=== PATIENT | female | born 1980 | race Caucasian/White ===

== ENCOUNTER 2020-12-20 07:38 | Outpatient (CLI) | payer OTHER, SELFPAY ==
--- NOTE | ~2020-12-20 | MM_ITS ---
EXAMINATION: MM screening [facility] BI w margarita HISTORY: Screening TECHNIQUE: Craniocaudal and mediolateral oblique 3-D tomosynthesis images were obtained and synthetic 2-D images were generated. CAD analysis was submitted and interpreted. COMPARISON: No prior mammogram is available for comparison at this institution. BREAST PARENCHYMAL COMPOSITION: The breasts are heterogenously dense, which may obscure small masses. FINDINGS: There are bilateral breast asymmetries with possible architectural distortion bilaterally. There are no suspicious calcifications. IMPRESSION: 1. Bilateral breast asymmetries with possible associated architectural distortion. 2. Additional mammographic views and possible breast ultrasound are recommended. BI-RADS Category 0: Incomplete: Needs additional imaging evaluation. Reviewed, dictated and finalized at location A. IMPRESSION: 1. Bilateral breast asymmetries with possible associated architectural distorti on. 2. Additional mammographic views and possible breast ultrasound are recommended . BI-RADS Category 0: Incomplete: Needs additional imaging evaluation.
== END 2020-12-20 07:39 | disposition home or self-care (01) ==
LOC: ANHIMG 07:42
PROVIDERS: PCP Internal Medicine; Visit Provider Nurse Practitioner
DX: Z12.31 Encounter for screening mammogram for malignant neoplasm of breast (principal); R92.8 Other abnormal and inconclusive findings on diagnostic imaging of breast
CPT/HCPCS: 77063; 77067

== ENCOUNTER 2021-02-07 11:54 | Outpatient (CLI) | payer OTHER, SELFPAY ==
--- NOTE | ~2021-02-07 | MMUS_ITS ---
EXAMINATION: MM diagnostic mammo BI, US breast BI complete HISTORY: Follow-up bilateral breast asymmetries. TECHNIQUE: Additional 3-D tomosynthesis images of the breasts were performed and synthetic 2-D images were generated. CAD analysis was submitted and interpreted. High resolution bilateral complete breas t ultrasound was performed. COMPARISON: Comparison to multiple prior studies sequentially, with oldest reviewed study dated 12/17. BREAST PARENCHYMAL COMPOSITION: Breast composed of scattered areas of fibroglandular density. FINDINGS: MAMMOGRAPHIC FINDINGS: There are no suspicious masses, calcifications or architectural distortion in either breast to sugges t malignancy. ULTRASOUND: Bilateral complete breast ultrasound including all 4 quadrants in the subareolar locations: In the ri ght breast at 3:00 near the nipple there is a 5 mm cyst. No suspicious solid or vascular masses are i dentified in either breast to suggest malignancy. IMPRESSION: 1. No evidence for malignancy in either breast. 2. Routine yearly screening mammogram and regular clinical breast examination are recommended. BI-RADS Category 2: Benign finding(s). Reviewed, dictated and finalized at location A. IMPRESSION: 1. No evidence for malignancy in either breast. 2. Routine yearly screening mammogram and regular clinical breast examination a re recommended. BI-RADS Category 2: Benign finding(s).
== END 2021-02-07 11:55 | disposition home or self-care (01) ==
PROVIDERS: PCP Internal Medicine; Visit Provider Obstetrics & Gynecology Gynecology
DX: N60.01 Solitary cyst of right breast (principal)
CPT/HCPCS: 76641; 77066

== ENCOUNTER → 2021-05-29 10:53 | Outpatient (CLI) | payer OTHER, SELFPAY ==
--- NOTE | ~2021-05-29 | XR_ITS ---
EXAMINATION: XR sacroiliac joints min 3V EXAM DATE: 05/29/2021 11:18 INDICATION: Sacrococcygeal disorders, not elsewhere classified. TECHNIQUE: Sacroiliac joints frontal and bilateral oblique projections. There is no prior study for comparison. FINDINGS: There is mild symmetric bilateral sacroiliac joint primary osteoarthritis without evidence of sacroiliitis. Sacrum, sacroiliac joints, sacral arcuate lines are intact. There are no bony erosio ns identified. There is IUD projecting over the central aspect of the pelvis. IMPRESSION: Mild bilateral sacroiliac osteoarthritis. Reviewed, dictated and finalized at location A.
== END ==
PROVIDERS: PCP Internal Medicine; Visit Provider Nurse Practitioner Adult Health
DX: M53.3 Sacrococcygeal disorders, not elsewhere classified (principal); M54.16 Radiculopathy, lumbar region; M47.898 Other spondylosis, sacral and sacrococcygeal region
CPT/HCPCS: 72202

== ENCOUNTER → 2021-05-31 13:35 | Outpatient (CLI) | payer OTHER, SELFPAY ==
--- NOTE | ~2021-05-31 | MR_ITS ---
EXAMINATION: MR lumbar spine wo con DATE: 05/31/2021 15:04 INDICATION: Radiculopathy, lumbar region. TECHNIQUE: Magnetic resonance imaging (MRI) of the lumbar spine was performed without intravenous con trast. Sequences included sagittal T2-weighted FSE, sagittal T2-weighted FS FSE, sagittal T1-weighted FSE, and axial T2-weighted FSE. COMPARISON: None FINDINGS: There is 10 degrees dextroscoliosis of lumbar spine. Vertebral body heights and interverteb ral disc heights are normal. The distal spinal cord signal intensity is normal. The conus medullaris is at L1. The following disc levels are specifically discussed: L1-L2: The disc does not extend beyond the endplate margin. There is no facet joint osteoarthritis. T here is no neural foraminal stenosis. There is no central canal stenosis. L2-L3: The disc does not extend beyond the endplate margin. There is mild bilateral facet joint osteo arthritis. There is no neural foraminal stenosis. There is no central canal stenosis. L3-L4: There is a right foraminal protrusion. There is mild bilateral facet joint osteoarthritis. The re is mild right neural foraminal stenosis. There is no central canal stenosis. L4-L5: The disc is bulging and has an annular fissure. There is mild bilateral facet joint osteoarthr itis. There is mild left neural foraminal stenosis. There is mild central canal stenosis. L5-S1: The disc does not extend beyond the endplate margin. There is mild right facet joint osteoarth ritis. There is no neural foraminal stenosis. There is no central canal stenosis. IMPRESSION: 1. Mild lumbar spondylosis. 2. Lumbar dextroscoliosis. Reviewed, dictated and finalized at location A.
== END ==
PROVIDERS: PCP Internal Medicine; Visit Provider Nurse Practitioner Adult Health
DX: M54.16 Radiculopathy, lumbar region (principal); M53.3 Sacrococcygeal disorders, not elsewhere classified; M47.816 Spondylosis without myelopathy or radiculopathy, lumbar region; M41.86 Other forms of scoliosis, lumbar region
CPT/HCPCS: 72148

== ENCOUNTER 2021-12-22 09:38 | Outpatient (CLI) | payer OTHER, SELFPAY ==
--- NOTE | ~2021-12-22 | MM_ITS ---
EXAMINATION: MM screening ashok BI w margarita HISTORY: Screening mammogram TECHNIQUE: Craniocaudal and mediolateral oblique 3-D tomosynthesis images were obtained and synthetic 2-D images were generated. CAD analysis was submitted and interpreted. COMPARISON: 02/07/2021, 12/20/2020, 12/17/2020 BREAST PARENCHYMAL COMPOSITION: The breasts are heterogeneously dense, which may obscure small masses . FINDINGS: There is no suspicious mass, calcification, or architectural distortion to suggest malignan cy in either breast. There has been no suspicious interval change. IMPRESSION: 1. No mammographic evidence of malignancy. 2. Recommend routine screening mammography in one year. BI-RADS Category 1: Negative Reviewed, dictated and finalized at location A.
== END 2021-12-22 09:39 | disposition home or self-care (01) ==
LOC: ANHIMG 09:40
PROVIDERS: PCP Internal Medicine; Visit Provider Nurse Practitioner
DX: Z12.31 Encounter for screening mammogram for malignant neoplasm of breast (principal)
CPT/HCPCS: 77063; 77067

== ENCOUNTER 2023-02-02 10:11 | Outpatient (CLI) | payer OTHER, SELFPAY ==
--- NOTE | ~2023-02-02 | MM_ITS ---
EXAMINATION: MM screening [facility] BI w margarita HISTORY: Screening mammogram TECHNIQUE: Craniocaudal and mediolateral oblique 3-D tomosynthesis images were obtained and synthetic 2-D images were generated. CAD analysis was submitted and interpreted. COMPARISON: 12/22/2021, 02/07/2021, 12/20/2020, 12/17/2020 BREAST PARENCHYMAL COMPOSITION: The breasts are heterogeneously dense, which may obscure small masses . FINDINGS: No suspicious mass, calcification, or architectural distortion are identified in either andrea ast to suggest malignancy. There has been no suspicious interval change. IMPRESSION: 1. No mammographic evidence of malignancy. 2. Recommend routine screening mammography in one year. BI-RADS Category 1: Negative Reviewed, dictated and finalized at location A.
== END 2023-02-02 10:12 | disposition home or self-care (01) ==
LOC: ANHIMG 10:16
PROVIDERS: PCP Internal Medicine; Visit Provider Obstetrics & Gynecology Gynecology
DX: Z12.31 Encounter for screening mammogram for malignant neoplasm of breast (principal)
CPT/HCPCS: 77063; 77067

== ENCOUNTER 2023-12-23 14:18 | Emergency (ER) | payer OTHER, SELFPAY ==
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
[2023-12-23 14:42] VITALS: BP 124/69; PULSE 81; RESP 18; TEMP 36.2; O2SAT 100
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
[2023-12-23] MEDS: HYDROcodone/acetaminophen (*CRX) 5-325 MG TABLET 1 TAB PO (15:52)
[2023-12-23 16:08] LABS: Basophils Percent Auto 0.4 % (0.2-1.2); Eosinophils Absolute Auto 0.1 K/mm3 (0-0.3); Hematocrit 42.9 % (37.0-47.0); Hemoglobin 14.8 g/dL (12.0-15.0); Immature Granulocyte Absolute 0.02 K/mm3 (0.00-0.031); Immature Granulocyte Percent A 0.2 % (0-0.5); Lymphocytes Absolute Auto 2.67 K/mm3 (0.9-3.2); Lymphocytes Percent Auto 27.9 % (18.3-44.2); Mean Corpuscular HGB Conc 34.5 g/dl (32-36); Mean Corpuscular Hemoglobin 31.3 pg (26-34); Mean Corpuscular Volume 90.7 fl (80-100); Mean Platelet Volume 9.9 fl (7.4-10.4); Monocytes Absolute Auto 0.7 K/mm3 (0.1-0.6); Monocytes Percent Auto 7.4 % (2.6-8.5); Neutrophils Percent Auto 63.1 % (45.5-73.1); Platelet Count Result 287 k/mm3 (150-375); Red Blood Count 4.73 M/mm3 (4.2-5.4); Red Cell Distribution Width 11.9 % (11.5-14.5); White Blood Count 9.6 K/mm3 (4.5-10.0)
[2023-12-23 16:38] LABS: Alanine Aminotransferase 20 U/L (6-35); Albumin Level 4.4 g/dL (3.5-5.1); Alkaline Phosphatase 87 U/L (38-126); Anion Gap 4 mmol/L (8-16); Aspartate Amino Transferase 29 U/L (14-36); Bilirubin,Total 0.6 mg/dL (0.2-1.3); Blood Urea Nitrogen 9 mg/dL (7-17); Calcium 9.1 mg/dL (8.4-10.2); Carbon Dioxide 29 mmol/L (22-30); Chloride 106 mmol/L (98-107); Estimated Glomerular Filt Rate > 60; Glucose 92 mg/dL (65-110); Lipase 72 U/L (23-300); Potassium 3.7 mmol/L (3.4-5.0); Sodium 139 mmol/L (137-145)
[2023-12-23 16:39] LABS: Add Urine Microscopic? YES; Appearance Urine Cloudy (Clear); Bacteria Urine 1+ /hpf; Bilirubin Urine Negative (Negative); Blood Urine Negative (Negative); Color Urine Yellow (Yellow); Glucose Urine UA Negative (Negative); Ketones Urine Trace mg/dL (Negative); Leukocyte Esterase Ur 1+ LEU/UL (Negative); Need Manual Microscopic Reviewed; Nitrate Urine Negative (Negative); Non Pathogenic Casts 0-2; Protein Urine Trace mg/dL (Negative); Specific Grav Ur 1.024 (1.001-1.035); Squamous Epithelial Cell Urine Many /hpf (Few); pH Urine 7.5 (5.0-9.0)
[2023-12-23 17:39] VITALS: BP 120/60; PULSE 80; RESP 20; TEMP 36.7; O2SAT 98
== END 2023-12-23 18:03 | disposition home or self-care (01) ==
LOC: ANHED 17:53
PROVIDERS: Nurse Practitioner Family; Emergency Provider Physician Assistant; PCP Internal Medicine
DX: R10.30 Lower abdominal pain, unspecified (principal); M25.562 Pain in left knee; M25.561 Pain in right knee; Z79.899 Other long term (current) drug therapy; V49.40XA Driver injured in collision with unspecified motor vehicles in traffic accident, initial encounter
CPT/HCPCS: 36415; 73562; 74177; 80053; 81025; 83690; 85025; 87086; 87088; 99284; A9270; Q9967

== ENCOUNTER 2024-01-06 12:43 | Outpatient (CLI) | payer OTHER, SELFPAY ==
--- NOTE | ~2024-01-06 | MR_ITS ---
MRI of the left knee Clinical history: Pain Technique: Coronal proton density and proton density-weighted images, sagittal proton-density and T2 fat-sat images, and axial proton-density fat-saturated images were acquired. Findings: Anterior and posterior cruciate ligaments are intact. Medial collateral ligament and the la teral collateral ligament complex are intact. Popliteus tendon is intact. Medial and lateral menisci are intact, without evidence of tear. Articular cartilage is well preserved throughout the knee. Bone marrow signals are unremarkable. Extensor mechanism is intact. No significant joint effusion or Meyers's cyst. Impression: No significant abnormality identified. Reviewed, dictated and finalized at location . Impression: No significant abnormality identified.
--- NOTE | ~2024-01-06 | MR_ITS ---
MRI of the right knee Clinical history: Pain Technique: Coronal proton density and proton density-weighted images, sagittal proton-density and T2 fat-sat images, and axial proton-density fat-saturated images were acquired. Findings: Anterior and posterior cruciate ligaments are intact. Medial collateral ligament and the la teral collateral ligament complex are intact. Popliteus tendon is intact. Medial and lateral menisci are intact, without evidence of tear. There is postoperative change at the region of the medial patellar retinaculum. There is an apparent osteochondral lesion at the medial f emoral condyle, with stable appearance. Extensor mechanism is intact. No joint effusion or Meyers's cyst. Impression: Probable osteochondral lesion of the medial femoral condyle, with overall stable appearance. Correlat e with any relevant surgical history. Postoperative change in the region of the medial patellar retinaculum. No acute abnormality evident. Reviewed, dictated and finalized at [facility] [place]. Impression: Probable osteochondral lesion of the medial femoral condyle, with overall stabl e appearance. Correlate with any relevant surgical history. Postoperative change in the region of the medial patellar retinaculum. No acute abnormality evident.
== END 2024-01-06 12:44 ==
LOC: GOSHIMG 12:48
PROVIDERS: PCP Internal Medicine; Visit Provider Clinical Nurse Specialist
DX: M25.561 Pain in right knee (principal); M25.562 Pain in left knee; Z98.890 Other specified postprocedural states
CPT/HCPCS: 73721

== ENCOUNTER 2024-02-06 15:32 | Outpatient (CLI) | payer OTHER, SELFPAY ==
--- NOTE | ~2024-02-06 | MM_ITS ---
EXAMINATION: MM screening [facility] BI w margarita HISTORY: Screening mammogram TECHNIQUE: Craniocaudal and mediolateral oblique 3-D tomosynthesis images were obtained and synthetic 2-D images were generated. CAD analysis was submitted and interpreted. COMPARISON: February 02, 2023, December 22, 2021, 12/20/2020 bilateral screening mammogram examinations BREAST PARENCHYMAL COMPOSITION: There are scattered areas of fibroglandular density FINDINGS: There is no evidence of suspicious mass, calcification, or architectural distortion to sugg est malignancy in either breast. There has been no suspicious interval change. IMPRESSION: 1. No mammographic evidence of malignancy. 2. Recommend routine screening mammography in one year. BI-RADS Category 1: Negative Reviewed, dictated and finalized at location A.
== END 2024-02-06 15:33 ==
PROVIDERS: PCP Obstetrics & Gynecology Gynecology; Visit Provider Obstetrics & Gynecology Gynecology
DX: Z12.31 Encounter for screening mammogram for malignant neoplasm of breast (principal)
CPT/HCPCS: 77063; 77067

== ENCOUNTER 2025-02-08 13:06 | Outpatient (CLI) | payer OTHER, SELFPAY ==
--- NOTE | ~2025-02-08 | MM_ITS ---
EXAMINATION: MM screening [facility] BI w margarita HISTORY: Screening TECHNIQUE: Craniocaudal and mediolateral oblique 3-D tomosynthesis images were obtained and synthetic 2-D images were generated. CAD analysis was submitted and interpreted. COMPARISON: Comparison to multiple prior studies sequentially, with oldest reviewed study dated 12/17. BREAST PARENCHYMAL COMPOSITION: Not dense: There are scattered areas of fibroglandular density. FINDINGS: There are developing asymmetries primarily centered in the upper outer quadrant of the righ t breast. The left breast is stable without evidence for malignancy. IMPRESSION: 1. Developing right breast asymmetries. 2. Additional mammographic views and possible breast ultrasound are recommended. BI-RADS Category 0: Incomplete: Needs additional imaging evaluation. Reviewed, dictated and finalized at location A. IMPRESSION: 1. Developing right breast asymmetries. 2. Additional mammographic views and possible breast ultrasound are recommended . BI-RADS Category 0: Incomplete: Needs additional imaging evaluation.
== END 2025-02-08 13:07 | disposition home or self-care (01) ==
LOC: MICIMG 13:07
PROVIDERS: PCP Internal Medicine; Visit Provider Obstetrics & Gynecology Gynecology
DX: Z12.31 Encounter for screening mammogram for malignant neoplasm of breast (principal); R92.8 Other abnormal and inconclusive findings on diagnostic imaging of breast
CPT/HCPCS: 77063; 77067

== ENCOUNTER 2025-02-25 12:36 | Outpatient (CLI) | payer OTHER, SELFPAY ==
--- NOTE | ~2025-02-25 | MMUS_ITS ---
EXAMINATION: MM diagnostic ashok RT w margarita, US breast RT limited HISTORY: Right breast asymmetries TECHNIQUE: Additional 3-D tomosynthesis images of the right breast were performed and synthetic 2-D i mages were generated. CAD analysis was submitted and interpreted. High resolution Limited right breas t ultrasound was performed. COMPARISON: Comparison to multiple prior studies sequentially, with oldest reviewed study dated 12/20. BREAST PARENCHYMAL COMPOSITION: Dense: The breasts are heterogeneously dense, which may obscure small masses FINDINGS: MAMMOGRAPHIC FINDINGS: There are persistent asymmetric nodular densities in the periareolar location of the right breast and lateral in the right breast. No discrete mass identified. No suspicious calcifications. No architect in training ural distortion. ULTRASOUND: Limited right breast ultrasound: There are multiple cysts of the right breast. At 10:00, 5 cm from th e nipple there is an intramammary lymph node measuring 7 mm. There are mildly prominent ducts in the 3:00 position in the subareolar location. No suspicious sonographic abnormalities to suggest malignan cy. IMPRESSION: 1. No evidence for malignancy in the right breast. Benign findings. 2. Routine yearly screening mammogram and regular clinical breast examination are recommended. BI-RADS Category 2: Benign finding(s). Reviewed, dictated and finalized at location B. IMPRESSION: 1. No evidence for malignancy in the right breast. Benign findings. 2. Routine yearly screening mammogram and regular clinical breast examination a re recommended. BI-RADS Category 2: Benign finding(s).
--- OUTSIDE RECORDS SUMMARY | 2025-02-25 12:43 | XMS_ITS ---
Author Organization [facility] [employer] [facility] Address [address] [place] [address] [address] [facility] [address] [place] [address] Care Team Providers Care Director Outcomes Name Role Phone Morgan Ortiz DO Primary Care Provider Na Sexton [phone] REASON FOR VISIT Transfer of care Social History Sex Assigned At : Social History Observation Description Sex Assigned At Female Encounters Encounter Location Date Provider Diagnosis [facility] [address] [facility] [address] [place] [address] 01/06/2025 Na Thayer Plan Of Treatment Next Appt Details Provider Name:Na kumar, 05/13/2025 09:45:00 AM, [facility], [facility] [address], [place], [address], Progress Notes * ANUP SAMUEL LDOB: [birth year] (44 yo F)Acc No.[id number]:01/06/2025 Patient: yTler KRISHNAMURTHY ANUP Covarrubias Provider: RON RODRIGUEZ :1980 A ge:44 Y S ex:Female Date:01/06/2025 [address] [facility] Pcp:Morgan Ortiz DO Subjective: * Chief Complaints: * 1 . Transfer of care. * Medical History: Objective: * Vitals: Assessment: Plan: * Treatment: * Billing Information: * Visit Code: * Procedure Codes: * Electronic signature of RON Lane on 02/25/2025 at 12:43 PM CDT Sign off status: Pending * Provider: Dayami COFFEY PMP Date: 0 01/06/2025 Generated for Nola gardner/Jeremy/Karla on: 0 02/25/2025 12:43 PM CDT
--- OUTSIDE RECORDS SUMMARY | 2025-02-25 12:43 | XMS_ITS ---
Author Organization [facility] Address [address] [place] [address] Care Team Providers Care Documentation Liaison Name Role Phone Sobia Lawrence Primary Care Provider REASON FOR VISIT re-establish care Encounters Encounter Location Date Provider Diagnosis [facility] - Sobia Lawrence [address] [place] [address] 11/26/2024 Sobia Lawrence Plan Of Treatment No Information Progress Notes * Alyssa SAMUELDOB: 9 (44 yo F)Acc No.[id number]:11/26/2024 Progress Notes Patient: Alyssa HEMPHILL Provider: Sophie Lawrence MD :1980 A ge:44 Y S ex:Female Date:11/26/2024 [address] [facility] Subjective: * Chief Complaints: * 1 . Re-establish care. * Medical History: Objective: * Vitals: Assessment: Plan: * Treatment: * Billing Information: * Visit Code: * Procedure Codes: * Electronic signature of Uday Lawrence MD on 02/25/2025 at 12:43 PM CDT Sign off status: Pending * Provider: Sophie Lawrence MD Date: 11/26/2024 Generated for Nola gardner/Jeremy/Alejandrinaitting on: 02/25/2025 12:43 PM CDT
--- OUTSIDE RECORDS SUMMARY | 2025-02-25 12:44 | XMS_ITS | Clinical Summary ---
Author Organization [employer] - 2022 Address [address] [address] [place] [address] Phone Care Team Providers Care Management Trainee Name Role Phone Morgan Ortiz DO Primary Care Provider Social History Tobacco Use Types Packs/Day Years Used Date Smoking Tobacco: Never Assessed Comments Unknown Sex and Gender Information Value Date Recorded Sex Assigned at Not on file Legal Sex Female 10:36 AM CDT Gender Identity Not on file Sexual Orientation Not on file Plan of Treatment Health Maintenance Due Date Last Done Comments DTAP/TDAP/TD VACCINES (1 - Tdap) 1998 HEPATITIS B VACCINES (1 of 3 - 19+ 3-dose series) 1998 HPV/Cotest (21-29) 2000 CERVICAL CANCER SCREENING 2009 HPV/Cotest (30-65) 2009 PAP SMEAR 2009 BREAST CANCER SCREENING 12/17/2020 12/18/2019 INFLUENZA VACCINE (#1) 2024 COLORECTAL SCREENING 2024 Colorectal Cancer Screening 2024 FIT-DNA Q 3 years 2024 FIT/FOBT Q 1 year 2024 Flex Sig/CT Colonography Q 5 years 2024 HPV VACCINES Aged Out No longer eligi ble based on patient's age to complete this topic Procedures Procedure Name Priority Date/Time Associated Diagnosis Comments MAMMO 3D TATA SCREEN BILAT W OR WO CAD Routine 12/18/2019 9:49 AM CDT Breast cancer screening by mammogram from Last 3 Months or Most Recently Relevant to Health Maintenance Results * MAMMO SCRN BILAT 3D TATA W OR WO CAD (12/18/2019 9:49 AM CDT) Anatomical Region Laterality Modality Breast Bilateral Mammography 12/18/2019 9:49 AM CDT Impressions 12/18/2019 11:56 AM CDT IMPRESSION: No mammographic evidence of malignancy. RECOMMENDATIONS: Routine screening mammogram in one year. DICTATION LOCATION: [facility] Narrative 12/18/2019 11:56 AM CDT MAMMO SCRN BILAT 3D TATA W OR WO CAD DATE: 12/18/2019 9:49 AM HISTORY: Routine screening TECHNIQUE: Full field digital craniocaudal and mediolateral oblique projections of both breasts were obtained. Computer aided diagnosis was performed. COMPARISON: No prior study for comparison BREAST COMPOSITION: Heterogeneously dense, which limits the sensitivity of mammography. FINDINGS: No suspicious mass, suspicious microcalcifications, or architectural distortion in either breast is identified. Since the prior study, there has been no significant interval change. The computer aided diagnosis detects no significant abnormality. There appear to be a couple of small lymph nodes in the right breast. OVERALL FINAL ASSESSMENT: BI-RADS CATEGORY 1 : Negative Procedure Note Levon Quezada MD - 12/18/2019 MAMMO SCRN BILAT 3D TATA W OR WO CAD DATE: 12/18/2019 9:49 AM HISTORY: Routine screening TECHNIQUE: Full field digital craniocaudal and mediolateral oblique projections of both breasts were obtained. Computer aided diagnosis was performed. COMPARISON: No prior study for comparison BREAST COMPOSITION: Heterogeneously dense, which limits the sensitivity of mammography. FINDINGS: No suspicious mass, suspicious microcalcifications, or architectural distortion in either breast is identified. Since the prior study, there has been no significant interval change. The computer aided diagnosis detects no significant abnormality. There appear to be a couple of small lymph nodes in the right breast. OVERALL FINAL ASSESSMENT: BI-RADS CATEGORY 1 : Negative IMPRESSION: No mammographic evidence of malignancy. RECOMMENDATIONS: Routine screening mammogram in one year. DICTATION LOCATION: [facility] us Ruthie Rodriguez MD MAMMO ORDERABLES Final Re sult from Last 3 Months or Most Recently Relevant to Health Maintenance Insurance [employer] CHOICE POS II Care Teams Management Trainee Relationship Specialty Start Date End Date Morgan Ortiz DO PCP - General 09/22/15
--- OUTSIDE RECORDS SUMMARY | 2025-02-25 12:44 | XMS_ITS | Encounter Summary ---
Author Organization [facility] Address [address] [facility] [address] [place] [id number] Care Team Providers Care Lace And Textiles Restorer Name Role Phone Morgan Ortiz DO Primary Care Provider [phone] Encounter Details Date Type Department Care Team (Late st Contact Info) Description 02/13/2017 Orders Only [facility] ProviderRosa MD [address] [place] [address] Social History Tobacco Use Types Packs/Day Years Used Date Smoking Tobacco: Never Assessed Comments Unknown Sex and Gender Information Value Date Recorded Sex Assigned at Not on file 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 Historical Provider [facility] DOTTIE TALLEY Final Result documented in this encounter Visit Diagnoses Not on filedocumented in this encounter Care Teams Lace And Textiles Restorer Relationship Specialty Start Date End Date Morgan Ortiz DO PCP - General Internal Medicine 03/05/19 documented as of this encounter
--- OUTSIDE RECORDS SUMMARY | 2025-02-25 12:44 | XMS_ITS | Data Portability ---
Author [facility] Address [address] [facility] [place] [address] Care Team Providers Care Dough Mixer Operator Name Role Phone HAYLEY HERNANDEZ Scrap Wheeler SAQIB MORRIS Primary Care Provider [phone] Assessment No assessment recorded. Plan of Treatment Reminders Order Date Submit Date Provider Last Modified By Organization Details Last Modified Time Details Appointments None recorded. Lab test, urine 2018 019 [email or web address] In-Office Order, Internal Use Only DO Not Attach Compendium DO Not Attach Compendium, Do Not Delete/merge, [id number] 09:36:02 Referral None recorded. Procedures None recorded. Surgeries None recorded. Imaging None recorded. Medication Orders None recorded. Patient TargetsNo targets recorded. Patient Instructions Encounter Date Encounter Id Patient Instructions Last Modified By Organization Details Last Modified Time 10/20/2018 [id number] learning about healthy weight [email or web address] Not available 10/20/2018 09:36:02 Reason for Referral None Reported. Results Created Date Observation Date Name Description Value Unit Range Abnormal Flag Note LastModifiedBy Organization Detail LastModifiedTime 10/20/19 19 10/20/2018 pregn margret test, urine HCG negati ve Not Available In-Office Order Internal Use Only DO Not Attach Compendium DO Not Attach Compendium, Do Not Delete/merge, [id number] 10/20/2018 09:24:02 Result Notes None recorded. Problems No Known Problems Procedures Surgical History Date Name Laterality Status Provider Name and Address Organization Details Recorded Time 3 section completed [facility] 10/20/2018 08:58:16 8 hammer toe operation completed [facility] 10/20/2018 08:59:27 7 hammer toe operation completed Belén Maguire [facility] 10/20/2018 08:59:14 6 operative procedure on knee completed Bel[facility] Maguire [facility] 10/20/2018 08:58:44 Imaging Results None recorded. Procedure Notes None recorded. Medical Equipment None Reported. Allergies Allergen ID Allergen Name Allergen Category Reaction Reaction Severity Criticality Documentation Date Start Date Code Code System Note Provider Name and Address Organization Details Recorded Time 11581115 erythromy dasha medicatio n irregular heart rate Not available Not available 10/20/2018 4053 RxNorm [facility] 08:[facility]26 Medications Name Sig Start Date Stop Date Status Note LastModified by Organization Details LastModified Time Mirena 21 mcg/24 hr (up to 8 years) 52 mg intrauteri ne device Take by intrauter ine route. active inserted 10/[address] rodriguez in [facility] Not Available Not Available Not Available Vitals Date Recorded Body weight Body mass index (BMI) Body height Systolic blood pressure Diastolic blood pressure Provider Name and Address Organization Details Last Updated DateTime 10/20/2018 50524.56 g 27.9 kg/m2 172.72 cm 110 mm[Hg] 70 mm[Hg] Belén Maguire [facility] 9 08:47:30 Social History Question Answer Notes LastModified by Organizat ion Details LastModified Time Tobacco Smoking Status Never Smoker Belén sandoval [facility] 10/20/2018 08:56:52 Is Blood Transfusion Acceptable In An Emergency? Yes Information not available 10/20/2018 What Is Your Level Of Caffeine Consumption? Moderate Information not available 10/20/2018 How Much Tobacco Do You Chew? None Information not available 10/20/2018 What Type Of Diet Are You Following? REGULAR Information not available 10/20/2018 Which Illicit Or Recreational Drugs Have You Used? Denies Information not available 10/20/2018 Education 2 Year College Information not available 10/20/2018 Live Alone Or With Others? With Others Information not available 10/20/2018 What Was The Date Of Your Most Recent Tobacco Screening? 10/20/2018 Information not available 04/30/2019 How Many Children Do You Have? 3 Information not available 10/20/2018 Performs Monthly Self-breast Exam? Yes Information no t available 10/20/2018 Do You Use Protection During Sex? No Information not available 10/20/2018 What Is Your Relationship Status? Information not available 10/20/2018 Seat Belts Used Routinely Yes Information not available 10/20/2018 Are You Sexually Active? Yes Information not available 10/20/2018 General Stress Level Medium Information not available 10/20/2018 Do You Use Sunscreen Routinely? Yes Information not available 10/20/2018 Sex: Unknown Functional Status Question Answer Note LastModified by Organizat ion Details LastModified Time What is your level of alcohol consumption? Occasional Information not available 10/20/2018 Are you currently employed? Yes Information not available 10/20/2018 What is your exercise level? Occasional Information not available 10/20/2018 Mental Status None recorded. Family History Relationship Description Onset Age of this Age Resolved Age Notes LastModified by Organization Details LastModified Time Father Hypertensive disorder [place] Not available 2018 08:55:55 Mother Malignant tumor of breast 58 Pt told to say yes anthony e mom had lumps remove d that were benign but had lympho ma and then leukem ia. (Seen at [facility]) [email or web address] Not available 10/20/2018 09:38:30 Mother Leukemia [place] Not available 10/20/2018 08:56:21 Maternal Grandmother Malignant neoplasm of lung [place] Not available 2018 08:56:38 Maternal Grandmother Osteoporosis [place] Not available 10/20/2018 08:56:45 Medical History Condition Response Other N High Blood Pressure N Breast Cancer N Depression Y Blood Clots N Lung Disease N Breast Problem N Anesthesia Complications Y Headaches/Migraines N Anxiety Disorder Y Muscle, Joint, or Bone Problems N Polyps N Infertility N Acid Reflux (GERD) N Cancer N Endometriosis N High Cholesterol N Liver Disease N Thyroid Problems N Kidney or Bladder Problems N GI Problems N Acne N Eating Disorder N Anemia N Diabetes N Ovarian Cancer N Blood Transfusions N Seizures/Epilepsy N Abuse/Domestic Violence N Asthma N Hepatitis N Heart Disease N Pre-Eclampsia N Osteoporosis N Gynecological History Statement/Question Response Flow Light On BCP's at Conception? N STIs/STDs N HPV Vaccine N Duration of Flow (days) 5 Age at Menarche 11 Current Control Method IUD Age at First Child 28 Sexually Active? Y Menses Monthly Y Date of Last Pap Smear Sexual Problems? N LMP Approximate Desired Control Method IUD Obstetrics History GPAL:G 3 P 3 0 0 3 Type Value Multiple Births 0 Full Term 3 Induced 0 Spontaneous 0 Premature 0 Living 3 Ectopics 0 Total 3 Past Encounters Encounter ID Performer Location Encounter Start Date Encounter Closed Date Diagnosis/Indication Diagnosis SNOMED-CT Code Diagnosis ICD10 Code Diagnosis [id number] [facility] [address] [place] [address] 10/20/2018 08:42:17 10/22/2018 08:21:04 Gynecologic examination 98744034 Z01.411 Pap done 10/[address] Rodriguez was normal per pt. Pt unsure if HPV was tested. RUFINA obtained. [facility] management [id number] Z30.9 Pt has the Mirena IUD which expires this month. She wants another one. UPT was negative today. RTO 2 weeks for repeat UPT and Mirena IUD replacemen t. Body mass index 25-29 - overweight 701346566 Z68.27 Nutrition and exercise discussed. Health Concerns Section Related Observation LastModified by Organization Detai ls LastModified Time None Recorded Concern Status LastModified by Organization Details LastModified Time None Recorded Advance Directives Directive None Recorded Payers Encounter Date Sequence Insurance Name Policy Number Policy Purvis Covered Member ID Purvis Member ID Guarantor Name 10/20/2018 1 [employer] (POS) [id number] Giovani Acuña [id number] Antwon Acuña Notes Date Note Type Note Provider Name and Address Organization Details Recorded Time 10/20/2018 text/html Annual GYNReport ed bypatient.Menstrua l cycle:Normal menses Urinary symptoms:No hematuria; No incontinence Vulva:No genital lesion Vagina:Normal vaginal discharge Breast:No breast pain; No breast lump; No nipple discharge Current Contraception:Intr auterine device (iud) Sexual complaints:No sexual complaints; No pain during intercourse; Normal libido Menopausal Symptoms:No menopausal symptoms; Normal vaginal lubrication Psychological symptoms:No depression; No anxiety; No PMDD Preventive measures:Encourage self breast examination; Encourage regular exercise; Encourage no tobacco use; Encourage regular mammograms starting age 40 Hayley sandoval, [place] - [place] 10/20/2018 09:38:43 OBGyn Episode Ob Episode Information Episode Created Date Number of Fetuses Patient Bloodtype Patient rh Status Prepregnancy Weight lbs Domestic Partner Domestic Partner Phone Father Name Ripening Room Attendant Status 10/20/19 19 1 CLOSED Fetus Data First Name Last Name Admitted to NICU Weight (g) Sex Living Outcome Pediatric Complications Fetus ID Race Codes Race Delivery Type M Full Term [id number] Spencer Calculation Initial Spencer Date Initial Exam Date Initial Exam Provider Initial Ultrasound Date Last Menstrual Period Date Ultra Sound Weeks Gestation 0 Eighteen To Twenty Week Spencer Update Ultra Sound Date Fundal Height At Umbil Quickening Date Ultra Sound Latest Weeks Gestation Final Spencer Confirmed By Final Spencer Confirmed Date Final Spencer Date Ultra Sound Latest Days Gestation 0 0 Menstrual History Last Menstrual Date Menses Monthly On Bcp Conception Prior Menses Frequency Hcg Plus Date Menarche Onset Age Delivery Information Delivery Date Delivery Type Labor Anesthesia Weeks Gestation Incision Type Labor Labor Length Hrs Delivered By Post Complications Tubal Sterilization Discharge Date Comments 3 Discharge Information Feeding Method Contraceptive Method Maternal HG B and HCT Levels Ob Episode Information Episode Created Date Number of Fetuses Patient Bloodtype Patient rh Status Prepregnancy Weight lbs Domestic Partner Domestic Partner Phone Father Name Ripening Room Attendant Status 10/20/19 19 1 CLOSED Fetus Data First Name Last Name Admitted to NICU Weight (g) Sex Living Outcome Pediatric Complications Fetus ID Race Codes Race Delivery Type M Full Term [id number] Vaginal Spencer Calculation Initial Spencer Date Initial Exam Date Initial Exam Provider Initial Ultrasound Date Last Menstrual Period Date Ultra Sound Weeks Gestation 0 Eighteen To Twenty Week Spencer Update Ultra Sound Date Fundal Height At Umbil Quickening Date Ultra Sound Latest Weeks Gestation Final Spencer Confirmed By Final Spencer Confirmed Date Final Spencer Date Ultra Sound Latest Days Gestation 0 0 Menstrual History Last Menstrual Date Menses Monthly On Bcp Conception Prior Menses Frequency Hcg Plus Date Menarche Onset Age Delivery Information Delivery Date Delivery Type Labor Anesthesia Weeks Gestation Incision Type Labor Labor Length Hrs Delivered By Post Complications Tubal Sterilization Discharge Date Comments 9 Discharge Information Feeding Method Contraceptive Method Maternal HG B and HCT Levels Ob Episode Information Episode Created Date Number of Fetuses Patient Bloodtype Patient rh Status Prepregnancy Weight lbs Domestic Partner Domestic Partner Phone Father Name Ripening Room Attendant Status 10/20/19 19 1 CLOSED Fetus Data First Name Last Name Admitted to NICU Weight (g) Sex Living Outcome Pediatric Complications Fetus ID Race Codes Race Delivery Type F Full Term [id number] Vaginal Spencer Calculation Initial Spencer Date Initial Exam Date Initial Exam Provider Initial Ultrasound Date Last Menstrual Period Date Ultra Sound Weeks Gestation 0 Eighteen To Twenty Week Spencer Update Ultra Sound Date Fundal Height At Umbil Quickening Date Ultra Sound Latest Weeks Gestation Final Spencer Confirmed By Final Spencer Confirmed Date Final Spencer Date Ultra Sound Latest Days Gestation 0 0 Menstrual History Last Menstrual Date Menses Monthly On Bcp Conception Prior Menses Frequency Hcg Plus Date Menarche Onset Age Delivery Information Delivery Date Delivery Type Labor Anesthesia Weeks Gestation Incision Type Labor Labor Length Hrs Delivered By Post Complications Tubal Sterilization Discharge Date Comments 1 Discharge Information Feeding Method Contraceptive Method Maternal HG B and HCT Levels
--- OUTSIDE RECORDS SUMMARY | 2025-02-25 12:44 | XMS_ITS | Data Portability ---
Author Organization [facility] [employer], Main Office Address [address] [place] [address] Assessment No assessment recorded. Plan of Treatment Reminders Order Date Submit Date Provider Last Modified By Organization Details Last Modified Time Details Appointments None recorded. Lab None recorded. Referral None recorded. Procedures None recorded. Surgeries None recorded. Imaging US, thyroid 2022 023 [email or web address] Not available 11:26:46 Medication Orders cyanocobala min (vit B-12) 1,000 mcg/mL injection solution 2022 023 [facility]/Pharmacy #[id number], [address] [place], [address], 3 11:19:20 Patient TargetsNo targets recorded. Patient InstructionsNo instructions recorded. Reason for Referral None Reported. Results Created Date Observation Date Name Description Value Unit Range Abnormal Flag Note LastModifiedBy Organization Detail LastModifiedTime 07/19/2007/27/2022 T3, FREE T3, free 3.3 pg/mL 2.3-4. 2 normal Not Available [employer] [facility] [address] [place], [address], 07/27/2022 09:35:19 07/19/20 22 07/27/2022 VITAM IN B12/F OLATE , SERUM PANEL vitamin B12 316 pg/mL 200-11 00 normal Pleas e Note: Altho ugh the refer ence range for vitam in B12 is 200-1 100 pg/mL , it has been repor dottie that betwe en 5 and 10% of patie nts with value s betwe en 200 and 400 pg/mL may exper ience neuro psych iatri c and hemat ologi c abnor malit ies due to occul t B12 defic iency ; less than 1% of patie nts with value s above 400 pg/mL will have sympt oms. Not Available [email or web address] [place] [address] [place], [address], 07/27/2022 09:35:18 07/19/20 22 07/27/2022 VITAM IN B12/F OLATE , SERUM PANEL folate, serum 21.3 NG/mL normal Refer ence Range Low: <3.4 Borde rline : 3.4-5 .4 Amaris l: >5.4 Not Available [email or web address] [place] [address] [address] [place], [address], 07/27/2022 09:35:18 07/19/20 22 07/27/2022 TSH TSH 1.98 mIU/L normal Refer ence Range > or = 20 Years 0.40- 4.50 Pregn margret Range s First trime ster 0.26- 2.66 Secon d trime ster 0.55- 2.73 Third trime ster 0.43- 2.91 Not Available [email or web address] [address] [address] [place], [address], 07/27/2022 09:35:18 07/19/20 22 07/27/2022 T4, FREE T4, free 1.0 NG/dL 0.8-1. 8 normal Not Available [email or web address] [address] [address] [place], [address], 07/27/2022 09:35:17 07/19/20 22 07/27/2022 THYRO ID PEROX IDASE ANTIB ODIES thyroid peroxidase antibodies 1 IU/mL <9 normal Not Available [email or web address] [address] [address] [place], [address], 07/27/2022 09:35:17 07/19/20 22 07/27/2022 RHEUM ATOID FACTO R rheumatoid factor <14 IU/mL <14 normal Not Available [email or web address] [facility] [address] [place], [address], 07/27/2022 09:35:16 07/19/2007/27/2022 AMELIA SCREE N, IFA, W/REF L TITER AND PATTE RN AMELIA screen, ifa negati ve negati ve normal AMELIA IFA is a first line scree n for detec ting the prese nce of up to appro ximat christian 150 autoa ntibo dies in vario us autoi mmune disea ses. A negat christine AMELIA IFA resul t sugge sts an AMELIA-a ssoci ated autoi mmune disea se is not prese nt at this time, but is not defin itive . If there is high clini enoc suspi cion for Sjogr en's syndr ome, testi ng for anti- SS-A/ Ro antib danielito shoul d be consi dered . Anti- Bertha-1 antib danielito shoul d be consi dered for clini melecio suspe cted infla mmato ry myopa sabrina . AC-0: Negat christine Inter natio nal Conse nsus on AMELIA Patte rns (http s://d oi.or g/10. 1515/ [facility]- 2017- 0052) For addit ional infor jozef phillip e refer to http: //[facility] iris suarez.Que stDia gnost ics.c om/fa q/FAQ 177 (This link is being provi ded for infor mary duvall/ educa apple l purpo ses only. ) Not Available [email or web address] [address] [address], [place], [address], 07/27/2022 09:35:16 07/19/20 22 07/27/2022 COMPR EHENS CHRISTINE METAB OLIC PANEL glucose 89 mg/dL 65-139 normal Non-f astin g refer ence inter evelia Not Available [email or web address] [facility] [address] [place], [address], 07/27/2022 09:35:15 07/19/20 22 07/27/2022 COMPR EHENS CHRISTINE METAB OLIC PANEL urea nitrogen (BUN) 10 mg/dL 7-25 normal Not Available [place] [address] [address] [place], [address], 07/27/2022 09:35:15 07/19/20 22 07/27/2022 COMPR EHENS CHRISTINE METAB OLIC PANEL creatinine 1.01 mg/dL 0.50-0 .99 high Not Available [address] [address] [place], [address], 07/27/2022 09:35:15 07/19/20 22 07/27/2022 COMPR EHENS CHRISTINE METAB OLIC PANEL eGFR 71 mL/mi n/1.7 3m2 > or = 60 normal The eGFR is based on the CKD-E PI 2020 equat ion. To calcu late the new eGFR from a previ ous Creat inine or Cysta tin C resul t, go to https ://anderson rebolledo.clarke mcduffie/karen perez s/ kdoqi /gfr% 5Fcal culat or Not Available [address] [address] [place], [address], 07/27/2022 09:35:15 07/19/2007/27/2022 COMPR EHENS CHRISTINE METAB OLIC PANEL BUN/creatini ne ratio 10 (calc ) 6-22 normal Not Available [place] [address] [address] [place], [address], 07/27/2022 09:35:15 07/19/2007/27/2022 COMPR EHENS CHRISTINE METAB OLIC PANEL sodium 140 mmol/ L 135-14 6 normal Not Available [address], [address], 07/27/2022 09:35:15 07/19/20 22 07/27/2022 COMPR EHENS CHRISTINE METAB OLIC PANEL potassium 3.7 mmol/ L 3.5-5. 3 normal Not Available [email or web address] [place] [address] [place], [address], 07/27/2022 09:35:15 07/19/20 22 07/27/2022 COMPR EHENS CHRISTINE METAB OLIC PANEL chloride 104 mmol/ L 98-110 normal Not Available [address], [address], 07/27/2022 09:35:15 07/19/20 22 07/27/2022 COMPR EHENS CHRISTINE METAB OLIC PANEL carbon dioxide 29 mmol/ L 20-32 normal Not Available [address], [address], 07/27/2022 09:35:15 07/19/2007/27/2022 COMPR EHENS CHRISTINE METAB OLIC PANEL calcium 9.5 mg/dL 8.6-10 .2 normal Not Available [address], [address], 07/27/2022 09:35:15 07/19/20 22 07/27/2022 COMPR EHENS CHRISTINE METAB OLIC PANEL protein, total 7.1 g/dL 6.1-8. 1 normal Not Available [address], [address], 07/27/2022 09:35:15 07/19/20 22 07/27/2022 COMPR EHENS CHRISTINE METAB OLIC PANEL albumin 4.6 g/dL 3.6-5. 1 normal Not Available [address], [address], 07/27/2022 09:35:15 07/19/20 22 07/27/2022 COMPR EHENS CHRISTINE METAB OLIC PANEL globulin 2.5 g/dL_ (calc ) 1.9-3. 7 normal Not Available [address], [address], 07/27/2022 09:35:15 07/19/20 22 07/27/2022 COMPR EHENS CHRISTINE METAB OLIC PANEL albumin/glob ulin ratio 1.8 (calc ) 1.0-2. 5 normal Not Available [address], [address], 07/27/2022 09:35:15 07/19/20 22 07/27/2022 COMPR EHENS CHRISTINE METAB OLIC PANEL bilirubin, total 0.5 mg/dL 0.2-1. 2 normal Not Available [address], [address], 07/27/2022 09:35:15 07/19/20 22 07/27/2022 COMPR EHENS CHRISTINE METAB OLIC PANEL alkaline phosphatase 87 U/L 31-125 normal Not Available [address], [address], 07/27/2022 09:35:15 07/19/20 22 07/27/2022 COMPR EHENS CHRISTINE METAB OLIC PANEL AST 14 U/L 10-30 normal Not Available [address], [address], 07/27/2022 09:35:15 07/19/20 22 07/27/2022 COMPR EHENS CHRISTINE METAB OLIC PANEL ALT 15 U/L 6-29 normal Not Available [address], [address], 07/27/2022 09:35:15 07/20/20 22 07/26/2022 CORTI HERNÁN, A.M. cortisol, A.M. 0.8 mcg/d L low Refer ence Range 8 a.m. (7-9 a.m.) Speci men: 4.0-2 2.0 Not Available [address], [address], 07/26/2022 10:17:41 07/20/20 22 07/26/2022 DEXAM ETHAS ONE dexamethason e 248 NG/dL Refer ence Range s for Dexam ethas one: Basel ine: Less than 20 ng/dL 1 mg dexam ethas one overn ight: 180-5 50 ng/dL (8:00 -10:0 0 AM) This test was devel oped and its caleb tical perfo rmanc e maribel cteri stics have been deter mined by [facility] margot johnsonZuleika roldan . It has not been clear ed or appro charanjit by FDA. This assay has been valid ated pursu ant to the CLIA regul ation s and is used for clini enoc purpo ses. Not Available [employer] [facility] [address] [place], [address], 07/26/2022 10:17:41 08/07/20 22 08/10/2022 TESTO STERO NE, FREE (DIAL YSIS) AND TOTAL ,MS testosterone , total, MS 35 NG/dL 2-45 For addit ional infor jozef phillip refer to https ://ed ucati on.qu winterBetTech Gaming. wunderloop/f aq/FA Q165 (This link is being provi ded for infor matmarcela nal/e ducat ional purpo ses only. ) (Note ) This test was devel oped and its caleb tical perfo rmanc e maribel cteri stics have been deter mined by [employer]. It has not been clear ed or appro charanjit by the FDA. This assay has been valid ated pursu ant to the CLIA regul ation s and is used for clini enoc purpo ses. Not Available [employer] [facility] [address] [address], [place], [address], 08/10/2022 15:37:48 08/07/20 22 08/10/2022 TESTO STERO NE, FREE (DIAL YSIS) AND TOTAL ,MS testosterone , free 2.5 pg/mL 0.1-6. 4 (Note ) This test was devel oped and its caleb tical perfo rmanc e maribel cteri stics have been deter mined by [employer] leon[employer]. It has not been clear ed or appro charanjit by the FDA. This assay has been valid ated pursu ant to the CLIA regul ation s and is used for clini enoc purpo ses. JAMAL med fusio n [address] [facility] [address] [place] [address] [phone] Praful de la o MD Not Available [employer] [facility] [address] [place], [address], 08/10/2022 15:37:48 08/07/20 22 08/10/2022 FSH AND LH FSH 5.4 mIU/m L normal Refer ence Range Folli cular Phase 2.5-1 0.2 Mid-c ycle Peak 3.1-1 7.7 Lutea l Phase 1.5- 9.1 Postm enopa usal 23.0- 116.3 Not Available [email or web address] [address] [address], [place], [address], 08/10/2022 15:37:47 08/07/20 22 08/10/2022 FSH AND LH LH 8.8 mIU/m L normal Refer ence Range Folli cular Phase 1.9-1 2.5 Mid-C ycle Peak 8.7-7 6.3 Lutea l Phase 0.5-1 6.9 Postm enopa usal 10.0- 54.7 Not Available [email or web address] [address] [address], [place], [address], 08/10/2022 15:37:47 08/07/20 22 08/10/2022 ESTRA DIOL estradiol 80 pg/mL normal Refer ence Range Folli cular Phase : 19-14 4 Mid-C ycle: 64-35 7 Lutea l Phase : 56-21 4 Postm enopa usal: < or = 31 Refer ence range estab lishe d on post- puber rex patie nt popul ation . No pre-p ubert al refer ence range estab lishe d using this assay . For any patie nts for whom low Estra diol level s are antic ipate d (e.g. males , pre-p ubert al child molina and hypog onada l/pos t-men opaus al femal es), the [facility] Sushil ls Insti tute Estra diol, Ultra sensi tive, LCMSM S assay is jose guadalupe carvajal (orde r code [id number] ). Jozef castillo note: patie nts being treat ed with the drug fulve stran t (Fasl odex( R)) have demon strat ed signi fican t inter feren ce in immun oassa y metho ds for estra diol measu remen t. The cross react ivity could lead to false ly eleva dottie estra diol test resul ts leadi ng to an inapp ropri ate clini enoc asses sment of estro gen statu s. [facility] order code [id number] -Estr adiol , Ultra sensi tive LC/MS /MS demon strat es negli gible cross react ivity with fulve stran t. Not Available [employer] [address], [address], 08/10/2022 15:37:47 04/30/20 23 05/03/2023 COMPR EHENS CHRISTINE METAB OLIC PANEL glucose 96 mg/dL 65-99 normal Fasti ng refer ence inter evelia Not Available [email or web address] [address], [address], 05/03/2023 09:26:57 04/30/20 23 05/03/2023 COMPR EHENS CHRISTINE METAB OLIC PANEL urea nitrogen (BUN) 9 mg/dL 7-25 normal Not Available [employer] [address], [address], 05/03/2023 09:26:57 04/30/20 23 05/03/2023 COMPR EHENS CHRISTINE METAB OLIC PANEL creatinine 0.86 mg/dL 0.50-0 .99 normal Not Available [employer] [address], [address], 05/03/2023 09:26:57 04/30/20 23 05/03/2023 COMPR EHENS CHRISTINE METAB OLIC PANEL eGFR 86 mL/mi n/1.7 3m2 > or = 60 normal The eGFR is based on the CKD-E PI 2020 equat ion. To calcu late the new eGFR from a previ ous Creat inine or Cysta tin C resul t, go to https ://anderson rebolledo.clarke mcduffie/pr ofess ional s/ kdoqi /gfr% 5Fcal culat or Not Available [address] [address] [place], [address], 05/03/2023 09:26:57 04/30/20 23 05/03/2023 COMPR EHENS CHRISTINE METAB OLIC PANEL BUN/creatini ne ratio NOT APPLIC ABLE (calc ) 6-22 Not Available [address], [address], 05/03/2023 09:26:57 04/30/20 23 05/03/2023 COMPR EHENS CHRISTINE METAB OLIC PANEL sodium 138 mmol/ L 135-14 6 normal Not Available [address], [address], 05/03/2023 09:26:57 04/30/20 23 05/03/2023 COMPR EHENS CHRISTINE METAB OLIC PANEL potassium 3.9 mmol/ L 3.5-5. 3 normal Not Available [address], [address], 05/03/2023 09:26:57 04/30/20 23 05/03/2023 COMPR EHENS CHRISTINE METAB OLIC PANEL chloride 104 mmol/ L 98-110 normal Not Available [address], [address], 05/03/2023 09:26:57 04/30/20 23 05/03/2023 COMPR EHENS CHRISTINE METAB OLIC PANEL carbon dioxide 26 mmol/ L 20-32 normal Not Available [address] [address] [place], [address], 05/03/2023 09:26:57 04/30/20 23 05/03/2023 COMPR EHENS CHRISTINE METAB OLIC PANEL calcium 9.6 mg/dL 8.6-10 .2 normal Not Available [address], [address], 05/03/2023 09:26:57 04/30/20 23 05/03/2023 COMPR EHENS CHRISTINE METAB OLIC PANEL protein, total 7.1 g/dL 6.1-8. 1 normal Not Available [address], [address], 05/03/2023 09:26:57 04/30/2005/03/2023 COMPR EHENS CHRISTINE METAB OLIC PANEL albumin 4.5 g/dL 3.6-5. 1 normal Not Available [address], [address], 05/03/2023 09:26:57 04/30/20 23 05/03/2023 COMPR EHENS CHRISTINE METAB OLIC PANEL globulin 2.6 g/dL_ (calc ) 1.9-3. 7 normal Not Available [address], [address], 05/03/2023 09:26:57 04/30/20 23 05/03/2023 COMPR EHENS CHRISTINE METAB OLIC PANEL albumin/glob ulin ratio 1.7 (calc ) 1.0-2. 5 normal Not Available [address], [address], 05/03/2023 09:26:57 04/30/20 23 05/03/2023 COMPR EHENS CHRISTINE METAB OLIC PANEL bilirubin, total 0.7 mg/dL 0.2-1. 2 normal Not Available [address], [address], 05/03/2023 09:26:57 04/30/20 23 05/03/2023 COMPR EHENS CHRISTINE METAB OLIC PANEL alkaline phosphatase 80 U/L 31-125 normal Not Available [facility] [place] [address] [place], [address], 05/03/2023 09:26:57 04/30/20 23 05/03/2023 COMPR EHENS CHRISTINE METAB OLIC PANEL AST 13 U/L 10-30 normal Not Available [address], [address], 05/03/2023 09:26:57 04/30/20 23 05/03/2023 COMPR EHENS CHRISTINE METAB OLIC PANEL ALT 9 U/L 6-29 normal Not Available [address], [address], 05/03/2023 09:26:57 04/30/20 23 05/03/2023 THYRO ID PEROX IDASE ANTIB ODIES thyroid peroxidase antibodies 1 IU/mL <9 Not Available [address], [address], 05/03/2023 09:26:59 04/30/2005/03/2023 VITAM IN B12/F OLATE , SERUM PANEL vitamin B12 296 pg/mL 200-11 00 normal Pleas e Note: Altho ugh the refer ence range for vitam in B12 is 200-1 100 pg/mL , it has been repor dottie that betwe en 5 and 10% of patie nts with value s betwe en 200 and 400 pg/mL may exper ience neuro psych iatri c and hemat ologi c abnor malit ies due to occul t B12 defic iency ; less than 1% of patie nts with value s above 400 pg/mL will have sympt oms. Not Available [facility] [employer] [address], [address], 05/03/2023 09:26:59 04/30/20 23 05/03/2023 VITAM IN B12/F OLATE , SERUM PANEL folate, serum 10.5 NG/mL normal Refer ence Range Low: <3.4 Borde rline : 3.4-5 .4 Amaris l: >5.4 Not Available [address], [address], 05/03/2023 09:26:59 04/30/20 23 05/03/2023 T3, FREE T3, free 3.7 pg/mL 2.3-4. 2 normal Not Available [address], [address], 05/03/2023 09:27:00 04/30/20 23 05/03/2023 TSH+F REE T4 TSH 2.18 mIU/L normal Refer ence Range > or = 20 Years 0.40- 4.50 Pregn margret Range s First trime ster 0.26- 2.66 Secon d trime ster 0.55- 2.73 Third trime ster 0.43- 2.91 Not Available [address], [address], 05/03/2023 09:27:00 04/30/20 23 05/03/2023 TSH+F REE T4 T4, free 1.1 NG/dL 0.8-1. 8 normal Not Available [address], [address], 05/03/2023 09:27:00 07/31/20 22 07/23/2022 , thyro id No observ [facility]. [id number] [facility] Add On Lab Orders [address] [place], [address], 12/05/2022 20:38:53 Result Notes None recorded. 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 Not Available [facility] 3 20:38:20 Goiter 6231167 Active 2021 Not Available [facility] 3 20:38:20 Arthritis 8233101 Active 2021 Not Available [facility] 3 20:38:20 Attention deficit hyperactivity disorder 518507059 Active 2018 Not Available [facility] 3 20:38:20 Obesity 654455241 Active 2021 Not Available [facility] 3 20:38:20 Irregular periods 23800966 Active 2021 Not Available [facility] 3 20:38:20 Thyroid nodule 459572724 Active 2022 Sobia Lawrence MD [address], [address] , [employer] 3 11:14:27 Vitamin B12 deficiency (non anemic) 39768286 Active 2022 Sobia Lawrence MD [address], [address] , [employer] 3 11:18:12 Problem Notes None recorded. Procedures Surgical History None recorded. Imaging Results Imaging Date Name Status LastModified by Organiz ation Details LastModified Time 07/23/2022 US, thyroid completed [id number] 026 [facility] Add On Lab Orders [address] [place], [address], 12/05/2022 20:38:53 Procedure Notes None recorded. Medical Equipment None Reported. Allergies Allergen ID Allergen Name Allergen Category Reaction Reaction Severity Criticality Documentation Date Start Date Code Code System Note Provider Name and Address Organization Details Recorded Time 52472 erythromy dasha medicatio n Not available Not available Not available 12/05/2022 4053 RxNorm Not Available [facility] 3 20:38:51 Medications Name Sig Start Date Stop Date Status Note LastModified by Organization Details LastModified Time fluconazole 150 mg tablet TAKE 1 TABLET BY MOUTH EVERY DAY active Not Available Not Available No t Available clonazepam 0.5 mg tablet active Not Available Not Available Not Available terconazole 0.8 % vaginal cream VAGINAL INSERT 1 APPLICATO R FULL PER VAGINA AT BEDTIME FOR 3 DAYS active Not Available Not Available No t Available methylpheni date ER 54 mg tablet,exte nded release 24 hr TAKE 1 TABLET BY MOUTH EVERY DAY IN THE MORNING 08/14 completed Not Available Not Available Not Available propranolol 10 mg tablet TAKE 1 TABLET BY MOUTH THREE TIMES A DAY NEEDED FOR 30 DAYS active Not Available Not Available No t Available amoxicillin 875 mg tablet 03/20 completed Not Available Not Available Not Available dextroamphe tamine-amph etamine ER 20 mg 24hr capsule,ext end release Take 1 capsule every day by oral route. active Not Available Not Available No t Available dexamethaso ne 1 mg tablet take at 10 p.m. the night before 8 a.m. cortisol test active Not Available Not Available No t Available benzonatate 100 mg capsule TK 2 CS PO TID PRF COUGH 03/20 completed Not Available Not Available Not Available cephalexin 500 mg capsule TK 1 C PO BID 03/20 completed Not Available Not Available Not Available pantoprazol e 40 mg tablet,ping yed release TAKE 1 TABLET BY MOUTH EVERY DAY IN THE MORNING active Not Available Not Available No t Available cyanocobala min (vit B-12) 1,000 mcg/mL injection solution INJECT 1 ML EVERY WEEK BY SUBCUTANE OUS ROUTE IN THE MORNING FOR 90 DAYS. active Not Available Not Available No t Available diclofenac sodium 75 mg tablet,ping yed release TAKE 1 TABLET BY MOUTH TWICE A DAY WITH MEALS active Not Available Not Available No t Available albuterol sulfate HFA 90 mcg/actuati on aerosol inhaler TAKE 1 PUFF BY MOUTH EVERY 4 HOURS NEEDED FOR SHORTNESS OF BREATH active Not Available Not Available No t Available ondansetron 4 mg disintegrat ing tablet 03/20 completed Not Available Not Available Not Available methylpheni date ER 36 mg tablet,exte nded release 24 hr TAKE 2 TABLETS BY MOUTH EVERY MORNING active Not Available Not Available No t Available amoxicillin 875 mg-potassiu m clavulanate 125 mg tablet TK 1 T PO BID WITH THE MORNING AND FLORESITA MEAL FOR 10 DAYS 03/20 completed Not Available Not Available Not Available ciclopirox 0.77 % topical cream APPLY TOPICALLY TO THE AFFECTED AREA TWICE DAILY 08/14 completed Not Available Not Available Not Available escitalopra m 10 mg tablet TAKE 1 TABLET BY MOUTH EVERY DAY FOR 30 DAYS 08/14 completed Not Available Not Available Not Available cyclobenzap rine 5 mg tablet TAKE 1 OR 2 TABLETS BY MOUTH 3 TIMES A DAY NEEDED (7 DAYS) active Not Available Not Available No t Available bupropion HCl XL 150 mg 24 hr tablet, extended release TK 1 T PO D 03/20 completed Not Available Not Available Not Available escitalopra m 5 mg tablet TAKE 1 TABLET BY MOUTH EVERY DAY FOR 14 DAYS 08/14 completed Not Available Not Available Not Available Vyvanse 50 mg capsule TAKE 1 CAPSULE BY MOUTH EVERY DAY IN THE MORNING active Not Available Not Available No t Available Vyvanse 70 mg capsule TAKE 1 CAPSULE BY MOUTH EVERY DAY IN THE MORNING active Not Available Not Available No t Available BD Insulin Syringe Ultra-Fine 1 mL 31 gauge x 5/16 INJECT B12 SUBCUTANE OUSLY ONCE WEEKLY X 90 DAYS active Not Available Not Available No t Available Vitals Date Recorded Body mass index (BMI) Body height Oxygen saturation Oxygen saturation in Arterial blood by Pulse oximetry Heart rate Body temperature Body weight Systolic blood pressure Diastolic blood pressure Provider Name and Address Organization Details Last Updated DateTime 2 31.7 kg/m2 174.24 cm 98 % 98 % 88 /min 97.7 [degF] 34782.5 8 g 105 mm[Hg] 65 mm[Hg] Not Available [facility] 3 20:38:02 Date Recorded Body mass index (BMI) Body height Oxygen saturation Oxygen saturation in Arterial blood by Pulse oximetry Heart rate Body temperature Body weight Systolic blood pressure Diastolic blood pressure Provider Name and Address Organization Details Last Updated DateTime 2 31.6 kg/m2 174.24 cm 99 % 99 % 77 /min 97.8 [degF] 86385.1 5 g 118 mm[Hg] 78 mm[Hg] Not Available [facility] 3 20:38:02 Date Recorded Body height Body temperature Heart rate Body mass index (BMI) Body weight Systolic blood pressure Diastolic blood pressure Provider Name and Address Organization Details Last Updated DateTime 3 174.24 cm 97 [degF] 89 /min 27.5 kg/m2 20816 g 122 mm[Hg] 85 mm[Hg] Jana Samson CMA [place] [facility] [employer] [facility] 3 10:51:49 Social History Question Answer Notes LastModified by Oree Details LastModified Time Tobacco Smoking Status Never Smoker Elvia sandoval [facility] [employer] [facility] 05/30/2023 10:46:17 What Is Your Level Of Caffeine Consumption? Occasional [id number] Information not available 12/05/2022 What Type Of Diet Are You Following? REGULAR [id number] Information not available 12/05/2022 How Many Days Of Moderate To Strenuous Exercise, Like A Brisk Walk, Did You Do In The Last 7 Days? 4 Information not available 05/30/2023 What Is Your Relationship Status? [id number] Information not available 12/05/2022 Do You Have Any Dietary Restrictions? No Information not available 05/30/2023 Sex: Female Functional Status Question Answer Note LastModified by Oree Details LastModified Time Do you use any illicit or recreational drugs? No Information not available 05/30/2023 What is your level of alcohol consumption? 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 Moderate [id number] Information not available 12/05/2022 Mental Status None recorded. Family History Relationship Description Onset Age of this Age Resolved Age Notes LastModified by Organization Details LastModified Time Father No current problems or disability [id number] Not available 12/05/2022 20:38:00 Mother No current problems or disability [id number] Not available 12/05/2022 20:38:00 Medical History Condition Response HEADACHES/MIGRAINES Y EXCESSIVE PERSPIRATION Y GERD/NAUSEA Y DIZZINESS Y SKIN PROBLEMS Y AUTOIMMUNE DISEASE LUNG DISEASE/DISORDER Y DEPRESSION (INCLUDING POST ) Gynecological HistoryNo gynecological history recorded. Obstetrics History GPAL:G 0 P 0 0 0 0 Past Encounters Encounter ID Performer Location Encounter Start Date Encounter Closed Date Diagnosis/Indication Diagnosis SNOMED-CT Code Diagnosis ICD10 Code Diagnosis Note [id number] [facility] [address] [place] [address] 07/16/2022 00:00:00 07/16/2022 10:52:45 [id number] [facility] [address] [place] [address] 08/14/2022 00:00:00 08/14/2022 15:50:39 [id number] Sobia Lawrence MD [facility] [address] [place] [address] 05/30/2023 10:43:58 05/30/2023 11:26:45 Alan thyroiditis 40172363 E06.3 TSH and FT4 in ideal range- recommende d a thyroid supplement similar to actalin by Dr. Morgan Peoples that contains, iodine, magnesium, manganese, carnitine and other elements to help maintain endogenous thyroid function and help to reduce swelling to take in meantime to help reduce time frame to burn out and to help with fatigue, hair thinning etc. Thyroid nodule 986568119 E04.1 Send for repeat thyroid u/s to screen for any change or character in nodule. She had a very small / nondominan t nodule- this is for surveillan ce/monitor ing purposes. Vitamin B1 2 deficiency (non anemic) 20978390 E53.8 Trial on B12 injections 1000 mcg SQ weekly along with daily folic acid 1 mg daily. Spent up to 25 minutes preparing to see the patient (eg, review of tests), obtaining and/or reviewing separately obtained history, performing a medically appropriat e examinatio n and evaluation , counseling and educating the patient, ordering medication s, tests, along with documentin g clinical informatio n in the electronic health record, independen tly interpreti ng results and communicat ing results to the patient. Patient can be followed by PCP - she/he is aware of my resignatio n and last day of July 19. If needed his/her PCP can refer patient to another endocrinol ogist in the area. All questions /concerns answered and refills necessary at visit today. Health Concerns Section Related Observation LastModified by Organization Detai ls LastModified Time None Recorded Concern Status LastModified by Organization Details LastModified Time None Recorded Advance Directives Directive None Recorded Payers Encounter Date Sequence Insurance Name Policy Number Policy Purvis Covered Member ID Purvis Member ID Guarantor Name 05/30/2023 1 [facility] Adin Acuña [id number] Alyssa Acuña Notes Date Note Type Note Provider Name and Address Organization Details Recorded Time 05/30/2023 text/html 42 yo female comes in for followup of hashimotos thyroiditis, thyroid nodule and B12 def. last seen in Aug at that time we continued thyroid support She has a 6 mm nodule found on imaging last Aug 2022. She has continued fatigue, low energy in the afternoons. She does take multiple naps during the day. She has had sleep studies and has been on stimulants for ADHD - however there is a backorder on treatment due to overuse/underprod [place]ction [place] now. Patient otherwise does eat most home cooked meals but not stringent. labs from 04/30/23:TSH of 2.18 uIU/mlFT4 of 1.1 ng/dLFt3 of 3.7 pg/mLB12 296 pg/mLfolate 10.5 ng/mlTPO 1 IU/mlglucose 96 mg/dLCr normalLFT normal Sobia Lawrence MD [address] [facility] [address], [place], [address], [facility] [employer] 05/30/2023 13:33:57 OBGyn Episode No OBEpisode recorded.
--- OUTSIDE RECORDS SUMMARY | 2025-02-25 12:44 | XMS_ITS | Clinical Summary ---
Author Organization [facility] Address [address] [place] [address] Care Team Providers Care Rating Examiner Name Role Phone Morgan Ortiz DO Primary Care Provider [phone] Allergies Active Allergy Reactions Criticality Noted Date Comments Erythromycin Palpitations,Other (See comments) Medium 07/19/2017 Meloxicam Hives,Rash Medium 08/01/2020 Medications lisdexamfetamin e (VYVANSE) 70 mg capsule TAKE 1 CAPSULE BY MOUTH ONCE DAILY IN THE MORNING FOR 30 DAYS 10/30/2023 Active cyclobenzaprine (FLEXERIL) 5 mg tablet Take 1 tablet (5 mg total) by mouth Active Active Problems Problem Noted Date Diagnosed Date Lateral epicondylitis of both elbows 12/05/2023 Chronic pain of left knee 08/29/2021 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 Chondral defect of condyle of right femur 2019 Overview (07/06/2020): Added automatically from request for surgery [id number] Osteochondral defect of femoral condyle 07/05/20 20 Chronic pain of right knee 07/05/2020 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 Attention deficit hyperactivity disorder 019 Immunizations Immunization Administration Dates Next Due Influenza, Quadrivalent, Split, Intramuscular Influenza, Quadrivalent, Spl it, Preservative Free, Intramuscular 08/06/2020,06/14/2019 Surgical History Surgery Date Site/Laterality Comments SECTION 10/07/2012 - 10/06/2013 CORRECTION HAMMER TOE 1995, 1997 Bilateral hardware KNEE ARTHROSCOPY 10/07/1994 - 10/06/1995 Left SCOPE KNEE ARTHROSCOPY 07/07/2020 - 08/06/2020 Right Medical History Medical History Date Comments Asthma h/o none X 15 yr s ADHD (attention deficit hyperactivity disorder) Treated with Adderall Anxiety Treated with pro panolol PRN Motion sickness Family History Medical History Relation Name Comments Hypertension Father Paco Cancer Father's Brother pancreatic (Ranjeet) Stroke Maternal Grandmother Kimber Cancer Mother chronic lukemia (Chelsy) Thyroid disease Mother chronic lukemia (Chelsy) Cancer Mother's Sister colon and breast (Tara) Anesthesia problems Neg Hx Relation Name Status Comments Father Paco Father's Brother pancreatic (Ranjeet) Maternal Grandmother Kimber Mother chronic lukemia (Chelsy) Mother's Sister colon and breast (Tara) Social History Tobacco Use Types Packs/Day Years Used Date Smoking Tobacco: Never Smokeless Tobacco: Never Alcohol Use Standard Drinks/Week Comments Yes 5 (1 standard drink = 0.6 oz pur e alcohol) AUDIT-C Answer Date Recorded Q1: How often do you have a drink containing alc ohol? 2-4 times a month 12/08/2020 Q2: How many drinks containi ng alcohol do you have on a typical day when you are drinking? 1 or 2 12/08/2020 Q3: How often do you have si x or more drinks on one occasion? 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 Gender Identity Not on file Sexual Orientation Not on file Obstetrics History Last Filed Vital Signs Vital Sign Reading Time Taken Comments Blood Pressure 138/89 02/04/2024 1:21 PM CDT Pulse 74 02/04/2024 1:21 PM CDT Temperature 36.7 C (98.1 F) 12/23/2023 11:59 AM CDT Respiratory Rate 18 12/23/2023 11:59 AM CDT Oxygen Saturation 100% 12/23/2023 11:59 AM CDT Inhaled Oxygen Concentration - - Weight 83 kg (183 lb) 03/10/2024 11:19 AM CDT Height 174 cm (5' 8.5 ) 03/10/2024 11:19 AM CDT Body Mass Index 27.42 03/10/2024 11:19 AM CDT Plan of Treatment Health Maintenance Due Date Last Done Comments Cervical Cancer Screening 1979 Colon Cancer Screening-Colonoscopy 1979 Depression Screening 1979 Hepatitis C Screening 1979 DTaP/Tdap/Td Vaccine (1 - Tdap) 1990 Hepatitis B Screening 1997 Regular Well Visit/Exam 18-64 1997 Breast Cancer Screening-Mammogram 12/17/2020 12/18/2019, 12/18/2019 Influenza Vaccine (Season Ended) 2025 08/06/2020, 06/14/2019, 06/14/2019 HPV Vaccines Aged Out No longer eligi ble based on patient's age to complete this topic Pneumococcal vaccine <65 Aged Out No longer eligible based on patient's age to complete this topic Medical Devices Implanted Type Area Philosophy Faculty Device Identifier Shelf Expiration Date Model / Serial / Lot [employer] [id number] Fresh Graft Bone Left Lateral Osteochondral Mehran Condyle - [id number] Implanted:Qty: 1 on 12/23/2020 by Steven Yoo IV, MD at [facility] Right: Knee [employer] 12/24/2020 [id number] / / [id number] Insurance [facility] [place] [address] [employer] OPEN ACCESS [facility] CHOICE PLUS Care Teams Rating Examiner Relationship Specialty Start Date End Date Morgan Ortiz DO PCP - General Internal Medicine 03/05/19
--- OUTSIDE RECORDS SUMMARY | 2025-02-25 12:44 | XMS_ITS | Clinical Summary ---
Author Organization [facility] [employer] Address [address] [place] [address] Care Team Providers Care Digital Sales Assistant Name Role Phone Morgan Ortiz DO Primary Care Provider [phone]- [phone] Source Comments [facility] [employer],non-owned Affiliates and Associated Physician Practices is amultiple site organization consisting of ambulatory clinics and hospital sitesin [place], [place], [place] and [place]. This disclosure is being madepursuant to the Care Everywhere program and may not contain all information available regarding this patient. Last updated 18.[facility] [employer] Allergies Active Allergy Reactions Criticality Noted Date Comments Erythromycin Other Medium 07/19/2017 Accelerated her heart rate. Medications * Be aware that medications may not be up to date on this document. Alwaysverify current medications with the patient. amphetamine-dex troamphetamine XR 24hr (ADDERALL XR) 20 MG capsule dextroamphetamin e-amphetamine ER 20 mg 24hr capsule,extend release Active propranolol (INDERAL) 10 MG tablet propranolol 10 mg tablet Active levonorgestrel (MIRENA, 52 MG,) 20 MCG/24HR IUD 1 device by Intrauterine route as directed Active Social History Tobacco Use Types Packs/Day Years Used Date Smoking Tobacco: Never Smokeless Tobacco: Never Alcohol Use Standard Drinks/Week Comments Yes 0 (1 standard drink = 0.6 oz pur e alcohol) four times weekly Comments No Sex and Gender Information Value Date Recorded Sex Assigned at Not on file 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 Gender Identity Not on file Sexual Orientation Not on file Last Filed Vital Signs Vital Sign Reading Time Taken Comments Blood Pressure 120/84 06/01/2019 12:24 PM CDT Pulse 80 06/01/2019 12:24 PM CDT Temperature 36.8 C (98.2 F) 06/01/2019 12:24 PM CDT Respiratory Rate 18 06/01/2019 12:24 PM CDT Oxygen Saturation 97% 06/01/2019 12:24 PM CDT Inhaled Oxygen Concentration - - Weight 79.4 kg (175 lb) 06/01/2019 12:24 PM CDT Height 172.7 cm (5' 8 ) 06/01/2019 12:24 PM CDT Body Mass Index 26.61 06/01/2019 12:24 PM CDT Plan of Treatment Health Maintenance Due Date Last Done Comments COLOGUARD (AGES 45-75) - COL ON CA SCREENING 1979 COLON MONITORING 1979 COLONOSCOPY - COLON CA SCREENING 1979 CT COLONOGRAPHY - COLON CA SCREENING 1979 Colorectal Cancer Screening 1979 FIT - COLON CA SCREENING 1979 FLEX SIG - COLON CA SCREENING 1979 LIPID TESTING 1979 MAMMOGRAM 1979 HIV SCREENING 1994 HEPATITIS C SCREENING 06/18/1997 DTAP/TDAP/TD VACCINES (1 - Tdap) 1998 HEPATITIS B VACCINE (1 of 3 - 19+ 3-dose series) 1998 PAP with HPV 2009 COVID-19 VACCINE ( - 2023-2 5 season) 2024 DEPRESSION SCREENING 10/07/2024 INFLUENZA VACCINE (Season Ended) 2025 ZOSTER VACCINE (1 of 2) 2029 HIB VACCINE Aged Out No longer eligi ble based on patient's age to complete this topic HPV VACCINE Aged Out No longer eligi ble based on patient's age to complete this topic MENINGOCOCCAL (Group B) VACC INE SHARED DECISION-MAKING Aged Out No longer eligibl e based on patient's age to complete this topic MENINGOCOCCAL GROUPS A/C/Y/W VACCINE Aged Out No longer eligible b ased on patient's age to complete this topic PNEUMOCOCCAL VACCINE Aged Out No long er eligible based on patient's age to complete this topic Insurance [employer] Care Teams Digital Sales Assistant Relationship Specialty Start Date End Date Morgan Ortiz DO PCP - General Internal Medicine 02/21/18
--- OUTSIDE RECORDS SUMMARY | 2025-02-25 12:44 | XMS_ITS | Patient Health Record ---
Author Organization [employer] [facility] Address [address] [place] [address] Care Team Providers Care Addictions Counselor Name Role Phone Sobia Lawrence Primary Care Provider [phone] Reason For Referral No Information Plan Of Treatment No Information
--- OUTSIDE RECORDS SUMMARY | 2025-02-25 12:44 | XMS_ITS | Patient Health Record ---
Author Organization [facility] As Boracci Address [address] [facility] [address] [place] [address] Care Team Providers Care Superintendent Gas Distribution Name Role Phone Morgan Ortiz DO Primary Care Provider Na Sexton Unavailable [phone] Alessandro, Thena Unavailable [phone] ClubAvelino bill Unavailable [phone] Allergies Allergen (clinical drug ingredient) Drug/Non Drug Allergy documented on EMR Reaction Allergy Type Onset Date Status Azithromycin Unknown Drug Allergy 07/26/2022 Act patricia meloxicam Meloxicam Unknown Drug Allergy 07/26/2022 Active Results Component Value Reference Range Notes UDT Reviewed date:03/16/2024 12:35:58 PM Interpretation: Performing Lab: Notes/Report: THC n 0 - 50 ng/ml Cocaine n Amphetamine n Buprenorphine (BUP) n Secobarbital (Bar) n Oxazepam (BZO) n 8-gmoyxfklgs-4,8-zecfovtz-9,3-diphenylpyrrolidine (NINFA P) n Methamphetamine (MET) n Methylenedioxymethamphetamine (MDMA) n Morphine (MOP 300/[id number]) n Methadone (MTD) n Phencyclidine (PCP) n Nortriptyline (TCA) n x n UDT Reviewed date:02/05/2025 03:14:11 PM Interpretation: Performing Lab: Notes/Report: THC n 0 - 50 ng/ml Cocaine n 0 - 300 ng/ml Amphetamine p 0 - 1000 ng/ml Buprenorphine (BUP) n 0 - 10 ng/ml Secobarbital (Bar) n 0 - 300 ng/ml Oxazepam (BZO) n 0 - 300 ng/ml 1-vkcgpgqhjw-3,6-zyyqwrdh-5,3-diphenylpyrrolidine (NINFA P) n 0 - 300 ng/ml Methamphetamine (MET) n 0 - 1000 ng/ml Methylenedioxymethamphetamine (MDMA) n 0 - 500 ng/ml Morphine (MOP 300/VFH5993) n 0 - 300 ng/ml Methadone (MTD) n 0 - 300 ng/ml Phencyclidine (PCP) n 0 - 25 ng/ml Nortriptyline (TCA) n 0 - 1000 ng/ml Oxycodone n 0 - 300 ng/ml x n 0 - 300 ng/ml UDT Reviewed date:01/12/2025 01:27:39 PM Interpretation: Performing Lab: Notes/Report: THC N 0 - 50 ng/ml Cocaine N 0 - 300 ng/ml Amphetamine P 0 - 1000 ng/ml Buprenorphine (BUP) N 0 - 10 ng/ml Secobarbital (Bar) N 0 - 300 ng/ml Oxazepam (BZO) N 0 - 300 ng/ml 5-ivvzcczhpc-2,7-xeetjvbd-4,3-diphenylpyrrolidine (NINFA P) N 0 - 300 ng/ml Methamphetamine (MET) N 0 - 1000 ng/ml Methylenedioxymethamphetamine (MDMA) N 0 - 500 ng/ml Morphine (MOP 300/XOX9619) N 0 - 300 ng/ml Methadone (MTD) N 0 - 300 ng/ml Phencyclidine (PCP) N 0 - 25 ng/ml Nortriptyline (TCA) N 0 - 1000 ng/ml Oxycodone N 0 - 300 ng/ml Reason For Referral No Information Medications Medication SIG (Take, Route, Frequency, Duration) Notes Start Date End Date Status Amphetamine-Dextroamphet ER 30 MG 1 capsule in the morning Orally Once a day for 30 days 02/23/2025 Active ProAir HFA 108 (90 Base) MCG/ACT Inhalation 12/16/2023 Active Immunizations Vaccine Route Administration Date Status Comme nts Influenza virus vaccine, quadrivalent (IIV4), split virus, 0.25 mL dosage Unknown 06/14/2019 Administered Novel Lmnbgfdnm-[id number], preservative free Unknown 08/06/2020 Administered Pfizer [facility] Covid-19 Vac cine 2nd dose Unknown 12/08/2020 Administered Pfizer Biontech Covid-19 Vac cine 2nd dose Unknown 12/31/2020 Administered Vitaldent Covid-19 Vac cine 2nd dose Unknown 09/22/2021 Administered Social History Tobacco Use: Social History Observation Description Date Details (start date - stop date) Never Smoker NA - NA Sex Assigned At : Social History Observation Description Sex Assigned At Female Household Question Answer Notes Marital status: Number of adults in household: 2 Number of children in household: 3 Level of education: finished college Tobacco Control (Standard) Question Answer Notes Tobacco use: Nonsmoker AUDIT-C (Standard) Question Answer Notes Did you have a drink contain ing alcohol in the past year? Yes How often did you have a dri nk containing alcohol in the past year? 2 to 3 times a week (3 points) How many drinks did you have on a typical day when you were drinking in the past year? 1 or 2 drinks (0 point) How often did you have six o r more drinks on one occasion in the past year? Never (0 point) Points 3 Interpretation Positive Problems Problem Type SNOMED Code ICD Code Onset Dates Problem Status W/U Status Risk Notes Problem Generalized anxiety disorder (50708650) Generalized anxiety disorder (F41.1) Active confirmed Problem Attention deficit hyperactivity disorder, combined type (98758667) Attention-deficit hyperactivity disorder, combined type (F90.2) 02/11/20 24 Active confirmed Problem Panic disorder [episodic paroxysmal anxiety] without agoraphobia (F41.0) Active confirmed Vital Signs Heart Rate 112 /min 02/05/2025 Height-cm 173.99 cm 02/05/2025 Blood pressure diastolic 91 mm Hg 02/05/2025 Weight-kg 88.45 kg 02/05/2025 Height 68.50 in 02/05/2025 Blood pressure systolic 138 mm Hg 02/05/2025 Weight 195 lbs 02/05/2025 BMI 29.22 kg/m2 02/05/2025 Encounters Encounter Location Date Provider Diagnosis Project Playlist [address] [place] [address] 03/16/2024 Thena Alessandro Attention-deficit hyperactivity disorder, combined type F90.2 ; Generalized anxiety disorder F41.1 and Panic disorder [episodic paroxysmal anxiety] without agoraphobia F41.0 Project Playlist [address] [place] [address] 07/16/2024 Thena Alessandro Attention-deficit hyperactivity disorder, combined type F90.2 ; Generalized anxiety disorder F41.1 and Panic disorder [episodic paroxysmal anxiety] without agoraphobia F41.0 [facility] [address] [place] [address] 01/12/2025 Avelino Clubb Alcohol use F10.90 ; Encounter for screening for depression Z13.31 ; Encounter for screening for cardiovascular disorders Z13.6 and Attention-deficit hyperactivity disorder, combined type F90.2 [facility] [address] [place] [address] 02/05/2025 Na Thayer Attention-deficit hyperactivity disorder, combined type F90.2 ; Encounter for screening for depression Z13.31 ; Encounter for screening for cardiovascular disorders Z13.6 and Dietary counseling and surveillance Z71.3 [facility] [address] [place] [address] 03/12/2024 Thena Alessandro [facility] [address] [place] [address] 05/18/2024 Na Thayer [facility] [address] [place] [address] 05/19/2024 Thena Alessandro [facility] [address] [place] [address] 06/08/2024 Thena Alessandro [facility] [address] [place] [address] 06/25/2024 Thena Alessandro Attention-deficit hyperactivity disorder, combined type F90.2 [facility] [address] [place] [address] 10/01/2024 Thena Alessandro Attention-deficit hyperactivity disorder, combined type F90.2 [facility] [address] [place] [address] 11/02/2024 Thena Alessandro [facility] [address] [place] [address] 11/11/2024 Thena Alessandro Attention-deficit hyperactivity disorder, combined type F90.2 [facility] [address] [place] [address] 12/16/2024 Na Thayer [facility] [employer] [facility] [address] [place] [address] 12/18/2024 Naalexandra Thayer [facility] [employer], [facility] [address] [place] [address] 01/04/2025 Naalexandra Thayer [facility] [employer], [facility] [address] [place] [address] 01/05/2025 Naalxeandra Thayer [facility] [employer] [facility] [address] [place] [address] 01/05/2025 Naalexandra Thayer [facility] [employer] [facility] [address] [place] [address] 01/06/2025 Naalexandra Thayer [facility] [employer] [facility] [address] [place] [address] 02/22/2025 Na Thayer Attention-deficit hyperactivity disorder, combined type F90.2 Assessments Encounter Date Diagnosis (ICD Code) Assessment Notes Treatment Notes Treatment Clinical Notes Section Notes 03/16/2024 Attention-defici t hyperactivity disorder, combined type (ICD-10 - F90.2) 01/12/2025 Alcohol use (ICD-10 - F10.90) 02/05/2025 Attention-defici t hyperactivity disorder, combined type (ICD-10 - F90.2) ADHD Stimulant Education -Discussed with patient risk of misuse, abuse, and addiction before prescribing stimulant medicines. -Counseled not to share their prescribed stimulant with anyone else. -Educated patient will monitor during treatment: regularly assess and monitor them for signs and symptoms of nonmedical use, addiction, and potential diversion, which may be evidenced by more frequent renewal requests and medication metabolites absent from urine drug screens. -Random UDS (at least every three months or more frequently deemed by provider). -Per office policy, only prescribed to local pharmacy in [place], no early refills on control substance. 06/25/2024 Attention-defici t hyperactivity disorder, combined type (ICD-10 - F90.2) 07/16/2024 Generalized anxiety disorder (ICD-10 - F41.1) 07/16/2024 Attention-defici t hyperactivity disorder, combined type (ICD-10 - F90.2) 10/01/2024 Attention-defici t hyperactivity disorder, combined type (ICD-10 - F90.2) 11/11/2024 Attention-defici t hyperactivity disorder, combined type (ICD-10 - F90.2) 02/22/2025 Attention-defici t hyperactivity disorder, combined type (ICD-10 - F90.2) 03/16/2024 Generalized anxiety disorder (ICD-10 - F41.1) 07/16/2024 Panic disorder [episodic paroxysmal anxiety] without agoraphobia (ICD-10 - F41.0) 03/16/2024 Panic disorder [episodic paroxysmal anxiety] without agoraphobia (ICD-10 - F41.0) 01/12/2025 Encounter for screening for depression (ICD-10 - Z13.31) 02/05/2025 Encounter for screening for depression (ICD-10 - Z13.31) 02/05/2025 Encounter for screening for cardiovascular disorders (ICD-10 - Z13.6) 01/12/2025 Attention-defici t hyperactivity disorder, combined type (ICD-10 - F90.2) Assessment and plan reviewed with patient Call for problems with medication, side effects or need for dosage change Compliance issues reviewed Discussed the risks/benefits of this medication Discussed medication side effects Return if symptoms worsen Treatment options reviewed. discussed that it can take weeks to see full therapeutic effects of psychotropic medications. discussed when to seek emergency services. discussed crisis prevention hotline 988. 01/12/2025 Encounter for screening for cardiovascular disorders (ICD-10 - Z13.6) 02/05/2025 Dietary counseling and surveillance (ICD-10 - Z71.3) 01/12/2025 Other Generalized Anxiety Disorder (DYLON) Assessment: Patient reports current anxiety level of 4 out of 10, indicating mild anxiety symptoms. She notes a correlation between her ADHD management and anxiety levels, stating that when her ADHD is well-controlled, her anxiety is lower. No recent panic attacks reported, with the last major anxiety-related issue occurring approximately 4 years ago. Patient denies current depression, hallucinations, delusions, or paranoia. Sleep and appetite are within normal limits. No suicidal or self-harm ideation present. Plan: - Continue current medication regimen. - Monitor effectiveness of current treatment, as patient reports slightly decreased efficacy - Encourage ongoing use of stress-reduction techniques - Follow up if anxiety symptoms worsen or if patient experiences return of panic attacks. - Follow up with RON Monzon on 02/05/25. Attention Deficit Hyperactivity Disorder (ADHD) Assessment: Patient reports ADHD as a contributing factor to her anxiety. She notes that when her ADHD is well-managed, her anxiety levels are lower. Current medication regimen appears to be somewhat effective, but patient has noticed a slight decrease in efficacy. No reported issues with concentration on current medications. Plan: - Continue Lisdexamfetamine Dimesylate 70 mg daily - Monitor effectiveness of treatment, considering potential need for adjustment if efficacy continues to decrease - Educate patient on the importance of consistent medication adherence for optimal symptom management - Follow up to reassess ADHD symptoms and their impact on anxiety - Follow up with RON Monzon on 02/05/25 The note is transcribed using speech recognition software. It is a reflection of a visit with the patient. It might have some inaccuracy, including medication names and transcribing errors, though efforts have been made to correct them. 02/05/2025 Other Discontinue lisdexamfetamine due to decreased efficacy Start Adderall ER 20mg daily for ADHD management Patient educated on all medications including potential benefits, side effects, risks. Educated on proper dosing schedule and importance of compliance. [place] report checked and consistent with prescription history, no controlled substance prescriptions from other providers. UDT completed today Records reviewed from previous providers for continuity of care. -Assessment and treatment plan reviewed with patient. -Compliance with treatment plan importance discussed. -Discussed the risks/benefits of this medication -Discussed medication side effects. -Contact office if symptoms worsen. -Discussed that it can take up to 6-8 weeks to see full therapeutic effects of psychotropic medications. -Crisis prevention hotline 288. Plan Of Treatment Next Appt Details Provider Name:Na kumar, 05/13/2025 09:45:00 AM, [address], [address], [place], [address], Insurance Providers Payer Name Payer Address Payer Phone Subscriber Number Group Number Insured Name Patient Relationship to Insured Coverage Start Date Coverage End Date [employer] [address] [address] [place] [id number] ANUP SAMUEL Self - patient is the insured Medical (General) History Medical History History ICD Code Problems: Attention deficit hyperactivit y disorder, combined type Generalized anxiety disorder Alan thyroiditis Panic attack asthma - mild intermittent vitamin D deficiency Surgical History Surgery Date(Month/Year) Other 12/23/2020 2019 1994,1999,2000 left knee x 2 right knee once hammer toe bunion both feet Hospitalization History Reason Date(Month/Year) surgeries
--- OUTSIDE RECORDS SUMMARY | 2025-02-25 12:44 | XMS_ITS | Encounter Summary ---
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
--- OUTSIDE RECORDS SUMMARY | 2025-02-25 12:44 | XMS_ITS | Referral Summary ---
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 Attention deficit hyperactivity disorder 019 Immunizations Immunization Administration Dates Next Due Influenza, Quadrivalent, Split, Intramuscular Influenza, Quadrivalent, Spl it, Preservative Free, Intramuscular 08/06/2020,06/14/2019 Social History Tobacco Use Types Packs/Day Years [...] on file 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 Right: Knee [employer] 12/24/2020 [id number] / / [id number] [facility] CHOICE PLUS [facility] HMO/PPO Address: [address] [address] [place] [address] [facility] OPEN ACCESS [facility] H[facility]/PPO Address: [address] [place] [address] [facility] CHOICE PLUS [facility] HMO/PPO Address: [address] [address] [place] [address] Care Teams Turner Machine Operator Relationship Specialty Start Date End Date Morgan Ortiz DO PCP - General Internal Medicine 03/05/19
== END 2025-02-25 12:37 | disposition home or self-care (01) ==
LOC: ANHIMG 12:41
PROVIDERS: PCP Internal Medicine; Visit Provider Obstetrics & Gynecology Gynecology
DX: R92.8 Other abnormal and inconclusive findings on diagnostic imaging of breast (principal)
CPT/HCPCS: 76642; 77061; 77065; G0279

== ENCOUNTER 2025-05-31 08:06 | Day surgery (SDC) | payer OTHER, SELFPAY ==
--- OUTSIDE RECORDS SUMMARY | 2013-04-15 19:00 | XMS_ITS | Continuity of Care Document ---
Author Organization [facility] Address [address] [place] [address] Phone Care Team Providers Care Radiographer Angiogram Name Role Phone Unavailable Unavailable Unavailable Advance Directives Directive Yes / No Effective Date File Name No Information Encounters Encounter Description Practice Location Reason(s) For Visit Diagnoses Date Provider Providers Copied on Encounter [facility], [address] [facility], [place], [place], [id number], tel:[phone] [facility] No Information No Information Referring Provider: PAM Covarrubias, [address], [place], [address]. tel:[phone] Family History Family Member Type Diagnosis Age At Onset No Information Payers Payer name Insurance type Covered constitution party ID Authoriza tiliam(s) [facility] POS [id number] Social History Type Description Quantity Date Captured Comments Sex Female Smoking Status No Information Chief Complaint And Reason For Visit No Information History Of Present Illness Encounter Date Complaint History Of Prese nt Illness No Information Instructions Date Instruction Additional Infor mation No Information Assessments Type Assessment Date No Information
[2024-10-06 11:52] VITALS: BMI 29.3
--- OUTSIDE RECORDS SUMMARY | 2024-11-26 06:00 | XMS_ITS ---
Author Organization [facility] Address [address] [place] [address] Care Team Providers Care Sushi Chef Name Role Phone Sobia Lawrence Primary Care Provider REASON FOR VISIT re-establish care Encounters Encounter Location Date Provider Diagnosis [facility] - Sobia Lawrence [address] [place] [address] 11/26/2024 Sobia Lawrence Plan Of Treatment No Information Progress Notes * Alyssa SAMUELDOB: 9 (44 yo F)Acc No.[id number]:11/26/2024 Progress Notes Patient: Alyssa HEMPHILL Provider: Sophie Lawrence MD :1980 A ge:44 Y S ex:Female Date:11/26/2024 [facility] [facility] Subjective: * Chief Complaints: * 1 . Re-establish care. * Medical History: Objective: * Vitals: Assessment: Plan: * Treatment: * Billing Information: * Visit Code: * Procedure Codes: * Electronic signature of Uday Lawrence MD on 05/31/2025 at 08:55 AM CDT Sign off status: Pending * Provider: Sophie Lawrence MD Date: 11/26/2024 Generated for Nola gardner/Jeremy/Alejandrinaitting on: 05/31/2025 08:55 AM CDT
[2025-05-14 11:52] VITALS: BMI 29.1
[2025-05-31 08:56] VITALS: BP 110/78; PULSE 77; RESP 16; TEMP 36.5; O2SAT 97; BMI 28.8
--- OUTSIDE RECORDS SUMMARY | 2025-05-31 08:56 | XMS_ITS | Encounter Summary ---
Author Organization [facility] Address [address] [place] [address] Phone Care Team Providers Care Enterprise Application Administrator Name Role Phone Morgan Ortiz DO Primary Care Provider [phone]- [phone] Encounter Details Date Type Department Care Team (Latest Contact Info) Description 12/10/2018 Orders Only [facility] IM EML Scanning, Provider Social History Tobacco Use Types Packs/Day Years Used Date Smoking Tobacco: Never Assessed Comments Unknown Sex and Gender Information Value Date Recorded Sex Assigned at Not on file 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
--- OUTSIDE RECORDS SUMMARY | 2025-05-31 08:56 | XMS_ITS | Patient Health Record ---
Author Organization [facility] Address [address] [place] [address] Care Team Providers Care Manager Telemetry Name Role Phone Sobia Lawrence Primary Care Provider Reason For Referral No Information Plan Of Treatment No Information
--- OUTSIDE RECORDS SUMMARY | 2025-05-31 08:56 | XMS_ITS | Encounter Summary ---
Author Organization [facility] Address [address] [facility] [address] [place] [address] Care Team Providers Care Life Sciences Manager Name Role Phone Morgan Ortiz DO Primary Care Provider [phone]- [phone] Encounter Details Date Type Department Care Team (Late st Contact Info) Description 02/13/2017 Orders Only [facility] ProviderRosa MD [address] [place] [address] Social History Tobacco Use Types Packs/Day Years Used Date Smoking Tobacco: Never Assessed Comments Unknown Sex and Gender Information Value Date Recorded Sex Assigned at Not on file 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
--- OUTSIDE RECORDS SUMMARY | 2025-05-31 08:56 | XMS_ITS | Patient Health Record ---
Author Organization [facility] [employer] Address [address] [place] [address] Care Team Providers Care Finance Executive Name Role Phone Morgan Ortiz DO Primary Care Provider Na Sexton Unavailable [phone] Alessandro Thena Unavailable [phone] Avelino Crump Unavailable [phone] Allergies Allergen (clinical drug ingredient) Drug/Non Drug Allergy documented on EMR Reaction Allergy Type Onset Date Status azithromycin Azithromycin Unknown Drug Allergy 07/26/2022 Active meloxicam Meloxicam Unknown Drug Allergy 07/26/2022 Active Results Component Value Reference Range Flag Notes UDT Reviewed date:02/05/2025 03:14:11 PM Interpretation: Performing Lab: Notes/Report: THC n 0 - 50 ng/ml Cocaine n 0 - 300 ng/ml Amphetamine p 0 - 1000 ng/ml Buprenorphine (BUP) n 0 - 10 ng/ml Secobarbital (Bar) n 0 - 300 ng/ml Oxazepam (BZO) n 0 - 300 ng/ml 1-ojjxfyzdjc-6,3-rbuafhlx-4, 3-diph enylpyrrolidine (EDDP) n 0 - 300 ng/ml Methamphetamine (MET) n 0 - 1000 ng/ml Methylenedioxymethamphetamin e (MDMA) n 0 - 500 ng/ml Morphine (MOP 300/[id number]) n 0 - 300 ng/ml Methadone (MTD) n 0 - 300 ng/ml Phencyclidine (PCP) n 0 - 25 ng/ml Nortriptyline (TCA) n 0 - 1000 ng/ml Oxycodone n 0 - 300 ng/ml x n 0 - 300 ng/ml Validity Testing Reviewed date:05/21/2025 11:31:36 AM Interpretation: Performing Lab:[facility], [address] [facility], [place], Director - [id number] Notes/Report: Not Medicated Consistent Not Medicated Consistent Not Medicated Consistent Not Medicated Consistent Specific Atkins 1.015 1.003 - 1.030 pH 5.4 3.0 - 10.9 Oxidants -15 200 g/mL Creatinine 146.4 20.0 - 300.0 mg/dL Stimulants Reviewed date:05/21/2025 11:31:36 AM Interpretation: Performing Lab: Notes/Report: Phentermine NEGATIVE 100.0 ng/mL Not Medicate d Consistent Methylphenidate NEGATIVE 50.0 ng/mL Not Medic ated Consistent Methamphetamine NEGATIVE 100.0 ng/mL Not Medi cated Consistent Amphetamine >4000 100.0 POSITIVE Medicated Consistent Amphetamine Reviewed date:05/21/2025 11:31:36 AM Interpretation: Performing Lab: Notes/Report: An exception occurred while processing this report and so it has incomplete data. Please contact [employer] for assistance. PDF Report [email or web address] UDT Reviewed date:01/12/2025 01:27:39 PM Interpretation: Performing Lab: Notes/Report: THC N 0 - 50 ng/ml Cocaine N 0 - 300 ng/ml Amphetamine P 0 - 1000 ng/ml Buprenorphine (BUP) N 0 - 10 ng/ml Secobarbital (Bar) N 0 - 300 ng/ml Oxazepam (BZO) N 0 - 300 ng/ml 1-pozgobifff-3,6-qgbfcyka-2, 3-diph enylpyrrolidine (EDDP) N 0 - 300 ng/ml Methamphetamine (MET) N 0 - 1000 ng/ml Methylenedioxymethamphetamin e (MDMA) N 0 - 500 ng/ml Morphine (MOP 300/CUP0393) N 0 - 300 ng/ml Methadone (MTD) N 0 - 300 ng/ml Phencyclidine (PCP) N 0 - 25 ng/ml Nortriptyline (TCA) N 0 - 1000 ng/ml Oxycodone N 0 - 300 ng/ml Reason For Referral No Information Medications Medication SIG (Take, Route, Frequency, Duration) Notes Start Date End Date Status ProAir HFA 108 (90 Base) MCG/ACT Aerosol Solution Inhalation 12/16/2023 Act patricia Amphetamine-Dextroamphet ER 30 MG Capsule Extended Release 24 Hour 1 capsule in the morning Orally Once a day; Duration: 30 days 05/17/2025 Active Estradiol 1 MG Tablet TAKE 1 TABLET BY M OUTH EVERY DAY Oral; Duration: 90 Days Active Immunizations Vaccine Route Administration Date Status Comme nts Influenza virus vaccine, quadrivalent (IIV4), split virus, 0.25 mL dosage Unknown 06/14/2019 Administered Pfizer Biontech Covid-19 Vac cine 2nd dose Unknown 09/22/2021 Administered Pfizer Biontech Covid-19 Vac cine 2nd dose Unknown 12/31/2020 Administered Pfizer Biontech Covid-19 Vac cine 2nd dose Unknown 12/08/2020 Administered Novel Tdygpvzvi-[id number], preservative free Unknown 08/06/2020 Administered Social History Tobacco Use: Social History Observation Description Date Details (start date - stop date) Never Smoker NA - NA Sex Assigned At : Social History Observation Description Sex Assigned At Female Social History Miscellaneous: Social Info Question Answer Notes Advance Care Planning Advance Directive FULL CODE Education: Highest achieved level of education Gaduate degree Safety issues: Do you feel safe at home? No Are there any firearms in the house? Yes Drug/Alcohol: Social Info Question Answer Notes AUDIT-C (Standard) Did you have a drink containing alcohol in the past year? Yes How often did you have a drink containing alcohol in the past year? 2 to 3 times a week (3 points) How many drinks did you have on a typical day when you were drinking in the past year? 1 or 2 drinks (0 point) How often did you have six or more drinks on one occasion in the past year? 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 Den ies Do you drink alcohol? Socially Problems Problem Type SNOMED Code ICD Code Onset Dates Problem Status W/U Status Risk Notes Problem Generalized anxiety disorder (29110608) Generalized anxiety disorder (F41.1) Active confirmed Problem Attention deficit hyperactivity disorder, combined type (98875987) Attention-deficit hyperactivity disorder, combined type (F90.2) 02/11/20 Active confirmed Problem Panic disorder [episodic paroxysmal anxiety] without agoraphobia (F41.0) Active confirmed Vital Signs Heart Rate 93 /min 05/17/2025 Height-cm 173.99 cm 05/17/2025 Blood pressure diastolic 81 mm Hg 05/17/2025 Weight-kg 82.1 kg 05/17/2025 Height 68.50 in 05/17/2025 Blood pressure systolic 118 mm Hg 05/17/2025 Weight 181.0 lbs 05/17/2025 BMI 27.12 kg/m2 05/17/2025 Encounters Encounter Location Date Provider Diagnosis [facility] [employer] [place] [address] [address] 07/16/2024 Thena Alessandro Attention-deficit hyperactivity disorder, combined type F90.2 ; Generalized anxiety disorder F41.1 and Panic disorder [episodic paroxysmal anxiety] without agoraphobia F41.0 [facility] [employer] [facility], [place] [address] [address] 01/12/2025 Avelino Clubb Alcohol use F10.90 ; Encounter for screening for depression Z13.31 ; Encounter for screening for cardiovascular disorders Z13.6 and Attention-deficit hyperactivity disorder, combined type F90.2 [facility] [place] [address] [address] 02/05/2025 Na Kurilla Attention-deficit hyperactivity disorder, combined type F90.2 ; Encounter for screening for depression Z13.31 ; Encounter for screening for cardiovascular disorders Z13.6 and Dietary counseling and surveillance Z71.3 [facility] [employer] [facility] [address] [address] 05/17/2025 Na Kurilla Attention-deficit hyperactivity disorder, combined type F90.2 [facility] [employer] [place] [address] [address] 06/08/[address] [facility] [place] [address] [address] 06/25/2024 Thena Alessandro Attention-deficit hyperactivity disorder, combined type F90.2 [facility], [facility] [address] [place] [address] 10/01/2024 Thena Alessandro Attention-deficit hyperactivity disorder, combined type F90.2 [facility], [facility] [address] [place] [address] 11/02/2024 Thena Alessandro [facility], [facility] [address] [place] [address] 11/11/2024 Thena Alessandro Attention-deficit hyperactivity disorder, combined type F90.2 [facility], [facility] [address] [place] [address] 12/16/2024 Na Kurilla [facility], [facility] [address] [place] [address] 12/18/2024 Na Kurilla [facility], [facility] [address] [place] [address] 01/04/2025 Na Kurilla [facility], [facility] [address] [place] [address] 01/05/2025 Na Kurilla [facility], [facility] [address] [place] [address] 01/05/2025 Na Kurilla [facility], [facility] [address] [place] [address] 01/06/2025 Na Kurilla [facility], [facility] [address] [place] [address] 02/22/2025 Na Kurilla Attention-deficit hyperactivity disorder, combined type F90.2 [facility], [facility] [address] [place] [address] 03/29/2025 Na Kurilla Attention-deficit hyperactivity disorder, combined type F90.2 [facility], [facility] [address] [place] [address] 04/08/2025 Na Kurilla [facility], [facility] [address] [place] [address] 04/08/2025 Na Kurilla [facility], [facility] [address] [place] [address] 04/29/2025 An Kurilla Attention-deficit hyperactivity disorder, combined type F90.2 Assessments Encounter Date Diagnosis (ICD Code) Assessment Notes Treatment Notes Treatment Clinical Notes Section Notes 01/12/2025 Alcohol use (ICD-10 - F10.90) 02/05/2025 [...] policy, only prescribed to local pharmacy in [place], no early refills on control substance. 06/25/2024 Attention-defici t hyperactivity disorder, combined type (ICD-10 - F90.2) 07/16/2024 Generalized anxiety disorder (ICD-10 - F41.1) 07/16/2024 Attention-defici t hyperactivity disorder, combined type (ICD-10 - F90.2) 10/01/2024 Attention-defici t hyperactivity disorder, combined type (ICD-10 - F90.2) 11/11/2024 Attention-defici t hyperactivity disorder, combined type (ICD-10 - F90.2) 02/22/2025 Attention-defici t hyperactivity disorder, combined type (ICD-10 - F90.2) 03/29/2025 Attention-defici t hyperactivity disorder, combined type (ICD-10 - F90.2) 04/29/2025 Attention-defici t hyperactivity disorder, combined type (ICD-10 - F90.2) 05/17/2025 Attention-defici t hyperactivity disorder, combined type (ICD-10 [...] policy, only prescribed to local pharmacy in [place], no early refills on control substance. 07/16/2024 Panic disorder [episodic paroxysmal anxiety] without [...] effects of psychotropic medications. -Crisis prevention hotline 988. 05/17/2025 Other Stable on current medication regimen, continue at current doses. -Refills sent in today -No concerns today Patient educated on all medications including potential benefits, side effects, risks. Educated on proper dosing schedule and importance of compliance. [place] PDMP report checked and consistent with prescription history, no controlled substance prescriptions from other providers. -Assessment and treatment plan reviewed with patient. -Compliance with treatment plan importance discussed. -Discussed the risks/benefits of this medication -Discussed medication side effects. -Contact office if symptoms worsen. -Discussed that it can take up to 6-8 weeks to see full therapeutic effects of psychotropic medications. -Crisis prevention hotline 988. Plan Of Treatment Pending Test Test Name Order Date UDT 05/17/2025 Next Appt Details Provider Name:Na kumar, 08/09/2025 10:00:00 AM, [address] [address] [address], [facility] [address], [place], [address], Insurance Providers Payer Name Payer Address Payer Phone Subscriber Number Group Number Insured Name Patient Relationship to Insured Coverage Start Date Coverage End Date Angelia [address] [place] [address] [id number] SAMUEL Self - patient is [...]
--- OUTSIDE RECORDS SUMMARY | 2025-05-31 08:56 | XMS_ITS | Clinical Summary ---
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 Gender Identity Not on file Sexual Orientation [...] 11:19 AM CDT Height 174 cm (5' 8.5) 03/10/2024 11:19 AM CDT Body Mass Index 27.42 03/10/2024 11:19 AM CDT Plan of Treatment Health Maintenance Due Date Last Done Comments Cervical Cancer Screening 1979 Colon Cancer Screening-Colonoscopy 1979 Depression Screening 1979 Hepatitis C Screening 1979 DTaP/Tdap/Td Vaccine (1 - Tdap) 1990 Hepatitis B Screening 1997 Regular Well Visit/Exam 18-64 1997 HPV Vaccines (1 - 3-dose SCD M series) 2006 Breast Cancer Screening-Mammogram 12/17/2020 12/18/2019, 12/18/2019 Influenza Vaccine (#1) 2025 0, 06/14/2019, 06/14/2019 Pneumococcal vaccine <65 Aged Out No longer eligible based on patient's age to complete this topic Medical Devices Implanted Type Area Vacuum Cleaner Operator Device Identifier Shelf Expiration Date Model / Serial / Lot Joint [employer] [id number] Fresh Graft Bone Left Lateral Osteochondral Mehran Condyle - [id number] Implanted:Qty: 1 on 12/23/2020 by Steven Yoo IV, MD at [facility] Right: Knee [employer] 12/24/2020 [id number] / / [id number] Insurance [facility] CHOICE PLUS CIGNA OPEN ACCESS [facility] CHOICE PLUS Care Teams Ampoule Washing Machine Operator Relationship Specialty Start Date End Date Morgan Ortiz DO PCP - General Internal Medicine 03/05/19
--- OUTSIDE RECORDS SUMMARY | 2025-05-31 08:57 | XMS_ITS | Clinical Summary ---
Author Organization [employer] - 2022 Address [address] [facility] [address] [place] [address] Phone Care Team Providers Care Computer Systems Architect Name Role Phone Morgan Ortiz DO Primary [...] (1 of 3 - 19+ 3-dose series) 06/07 HPV/Cotest (21-29) 2000 HPV VACCINES (1 - 3-dose SCDM series) 2006 CERVICAL CANCER SCREENING 2009 HPV/Cotest (30-65) 2009 PAP SMEAR 2009 BREAST CANCER SCREENING 12/17/2020 12/18/2019 COLORECTAL SCREENING 2024 Colorectal Cancer Screening 2024 FIT-DNA Q 3 years 2024 FIT/FOBT Q 1 year 2024 Flex Sig/CT Colonography Q 5 years 2024 INFLUENZA VACCINE (#1) 2025 Procedures Procedure Name Priority Date/Time Associated Diagnosis [...] screening mammogram in one year. DICTATION LOCATION: [facility] Narrative 12/18/2019 11:56 AM CDT MAMMO [...] screening mammogram in one year. DICTATION LOCATION: [facility] us Ruthie Rodriguez MD MAMMO ORDERABLES Final Re sult from Last 3 Months or Most Recently Relevant to Health Maintenance Insurance [employer] CHOICE POS II Care Teams Computer Systems Architect Relationship Specialty Start Date End Date Morgan Ortiz DO PCP - General 09/22/15
--- OUTSIDE RECORDS SUMMARY | 2025-05-31 08:57 | XMS_ITS | Clinical Summary ---
Author Organization [facility] Address [address] [facility] [place] [address] Care Team Providers Care Senior Manufacturing Test Engineer Name Role Phone Morgan Ortiz DO Primary Care Provider [phone] Source Comments [facility],non-owned Affiliates and Associated Physician Practices is amultiple site organization consisting of ambulatory clinics and hospital sitesin [place], [place], [place] and [place]. This disclosure is being madepursuant to the Care Everywhere program and may not contain all information available regarding this patient. Last updated 18.[facility] Allergies Active Allergy Reactions Criticality Noted Date [...] on file Legal Sex Female 7:04 AM [employer] Gender Identity Not on file Sexual Orientation [...] 12:24 PM CDT Height 172.7 cm (5' 8) 06/01/2019 12:24 PM CDT Body Mass Index [...] of 3 - 19+ 3-dose series) 1998 HPV VACCINE (1 - 3-dose SCDM series) 2006 PAP with HPV 2009 COVID-19 VACCINE ( - 2023-2 5 season) 2024 DEPRESSION SCREENING 10/07/2024 INFLUENZA VACCINE (#1) 2025 ZOSTER VACCINE (1 of 2) 2029 [...] complete this topic Insurance [employer] Care Teams Senior Manufacturing Test Engineer Relationship Specialty Start Date End Date Morgan Ortiz DO PCP - General Internal Medicine 02/21/18
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
[2025-05-31] MEDS: LACTATED RINGERS 1,000 ML 150 ML IV CONT (09:21)
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
[2025-05-31 10:35] VITALS: BP 115/69; PULSE 76; RESP 18; O2SAT 100
[2025-05-31 10:45] VITALS: BP 123/68; PULSE 66; RESP 18; O2SAT 100
[2025-05-31 10:55] VITALS: BP 132/67; PULSE 61; RESP 18; O2SAT 100
== END 2025-05-31 11:06 | disposition home or self-care (01) ==
PROVIDERS: PCP Internal Medicine; Visit Provider Internal Medicine Gastroenterology
PROC: 0DJD8ZZ Inspection of Lower Intestinal Tract, Via Natural or Artificial Opening Endoscopic (ICD-10-PCS; CPT 45378; principal; 2025-05-31 10:00)
DX: Z12.11 Encounter for screening for malignant neoplasm of colon (principal)
CPT/HCPCS: 45378